=== PATIENT | female | born 1950 | race Caucasian/White ===

== ENCOUNTER → 2016-03-30 | Outpatient (CLI) | payer BC ==
--- NOTE | 2016-04-02 08:48 | MM ---
Reason for exam: screening (asymptomatic). Last mammogram was performed 1 year ago. History: Patient is postmenopausal and is nulliparous. Taking estrogen for 4 years. Taking progesterone for 4 years. Physical Findings: A clinical breast exam by your physician is recommended on an annual basis and results should be correlated with mammographic findings. MG 3D Screening Mammo W/Cad Bilateral CC and MLO view(s) were taken. Prior study comparison: March 24, 2015, bilateral MG 3d screening mammo w/cad. March 01, 2014, bilateral MG screening mammo w CAD. The breast tissue is almost entirely fat. There is no discrete abnormality. No significant changes when compared with prior studies. ASSESSMENT: Negative, BI-RAD 1 RECOMMENDATION: Routine screening mammogram of both breasts in 1 year.
== END | disposition home or self-care (01) ==
LOC: RADMAMWWP 11:24
PROVIDERS: ATTEND Family Medicine
DX: Z12.31 Encounter for screening mammogram for malignant neoplasm of breast (principal)
CPT/HCPCS: 77063; G0202

== ENCOUNTER 2016-08-26 08:28 | Emergency (ER) | payer BC, MEDICARE ==
[2016-08-26] MEDS ORDERED: SODIUM CHLORIDE 0.9% 1,000 ML IV STA (08:52)
--- NOTE | 2016-08-26 09:26 | ED ---
General Adult HPI <Augusto Patel - Last Filed: 08/26/16 11:22> - General Source: patient, RN notes reviewed Mode of arrival: wheelchair Limitations: no limitations <Tyler Dumont - Last Filed: 08/26/16 11:29> - General Chief complaint: Weakness Stated complaint: WEAKNESS X 1 WEEK, SYNCOPE Time Seen by Provider: 08/26/16 08:51 - History of Present Illness Initial comments: Patient is a 65-year-old female who presents emergency room today with a chief complaint of generalized weakness to both the upper and lower extremity's. She does admit that symptoms started approximately a week ago. She states that she was at lunch and she had a syncopal episode. She states it was after she ate waiting for the bill and began feeling nauseated lightheaded put her head down in her lap. She states she did this 3 times on third time she did pass out. She states that she eventually did go to [facility] and did have CAT scan obtained. She states that she is also follow-up the family doctor. She states they did discuss about decreasing her atenolol. States that she has been taking half dose of her atenolol over the last few days. She states she's been feeling some generalized weakness today both the upper and lower extremities over the last few days and at times feeling somewhat nauseous and lightheaded again where she's had put her head into her lap. She states she does have an appointment with glass cutting machine feeder coming up in approximately a week. She denies any other complaints or symptoms at this time. Does admit that her appetite been somewhat down not eating and drinking as well. Does admit that she has a stressful job has been under increased stress due to her sister being sick as well. Patient denies any recent fever, chills, shortness of breath, chest pain, back pain, abdominal pain, nausea or vomiting, numbness or tingling , dysuria or hematuria, constipation or diarrhea, headaches or visual changes, or any other complaints. (Tyler Dumont) - Related Data Home Medications Medication Instructions Recorded Confirmed Atenolol [Tenormin] 25 mg PO DAILY 08/29/14 05/06/15 Dicyclomine [Bentyl] 10 mg PO QID PRN 10/14/14 05/04/15 Cholecalciferol [Vitamin D3] 3,000 unit PO DAILY 05/04/15 05/04/15 L.acidoph,Paracasei, B.lactis 1 each PO DAILY 05/04/15 05/04/15 [Probiotic] Multivit with Calcium,Iron,Min 1 each PO DAILY 05/04/15 05/04/15 [Women's Daily Multivitamin] Omeprazole [PriLOSEC] 40 mg PO AC-BRKFST PRN 05/04/15 05/04/15 Prevastatin 20 mg PO 05/06/15 05/06/15 Allergies Allergy/AdvReac Type Severity Reaction Status Date / Time Sulfa (Sulfonamide Allergy Rash/Hives Verified 08/26/16 08:35 Antibiotics) azithromycin AdvReac Rapid Verified 08/26/16 08:35 [From Zithromax Z-Venkat] Heart Rate levofloxacin [From Levaquin] AdvReac insomnia Verified 08/26/16 08:35 nitrofurantoin AdvReac Nausea & Verified 08/26/16 08:35 [From Macrobid] Vomiting nitrofurantoin AdvReac Nausea & Verified 08/26/16 08:35 macrocrystalline Vomiting [From Macrobid] Review of Systems ROS Other: All systems not noted in ROS Statement are negative. <Augusto Patel - Last Filed: 08/26/16 11:22> ROS Other: All systems not noted in ROS Statement are negative. <Tyler Dumont - Last Filed: 08/26/16 11:29> ROS Statement: Those systems with pertinent positive or pertinent negative responses have been documented in the HPI. Past Medical History Past Medical History: GERD/Reflux, Mitral Valve Prolapse (MVP) Additional Past Medical History / Comment(s): hx IBS, hx. colon polyps History of Any Multi-Drug Resistant Organisms: None Reported Additional Past Surgical History / Comment(s): jaw surg. to correct overbite, laparoscopy Past Anesthesia/Blood Transfusion Reactions: No Reported Reaction Past Psychological History: No Psychological Hx Reported Smoking Status: Former smoker Past Alcohol Use History: Rare Past Drug Use History: None Reported - Past Family History Father Family Medical History: Cancer Mother Family Medical History: Cancer, Deep Vein Thrombosis (DVT) <Tyler Dumont - Last Filed: 08/26/16 11:29> General Exam <Augusto Patel - Last Filed: 08/26/16 11:22> Limitations: no limitations <Tyler Dumont - Last Filed: 08/26/16 11:29> - General Exam Comments Initial Comments: General: The patient is awake and alert, in no distress, and does not appear acutely ill. Eye: Pupils are equal, round and reactive to light, extra-ocular movements are intact. No nystagmus. There is normal conjunctiva bilaterally. No signs of icterus. Ears, nose, mouth and throat: There are moist mucous membranes and no oral lesions. Neck: The neck is supple, there is no tenderness or JVD. Cardiovascular: There is a regular rate and rhythm. No murmur, rub or gallop is appreciated. Respiratory: Lungs are clear to auscultation, respirations are non-labored, breath sounds are equal. No wheezes, stridor, rales, or rhonchi. Gastrointestinal: Soft, non-distended, non-tender abdomen without masses or organomegaly noted. There is no rebound or guarding present. No CVA tenderness. Bowel sounds are unremarkable. Musculoskeletal: Normal ROM, no tenderness. Strength 5/5. Sensation intact. Pulses equal bilaterally 2+. Neurological: A&O x 3. CN II-XII intact, There are no obvious motor or sensory deficits. Coordination appears grossly intact. Speech is normal. Skin: Skin is warm and dry and no rashes or lesions are noted. Psychiatric: Cooperative, appropriate mood & affect, normal judgment. (Tyler Dumont) Course <Augusto Patel - Last Filed: 08/26/16 11:22> <Tyler Dumont - Last Filed: 08/26/16 11:29> Vital Signs 08/26/16 08/26/16 08/26/16 08:30 09:25 09:34 Temperature 98.6 F Pulse Rate 69 62 Respiratory 18 16 Rate Blood Pressure 150/72 137/72 Blood Pressure 169/85 [Right Arm Sitting] Blood Pressure 137/72 [Right Arm Standing] Blood Pressure 139/66 [Right Arm Supine] O2 Sat by Pulse 97 94 L Oximetry 08/26/16 10:00 Temperature Pulse Rate Respiratory 18 Rate Blood Pressure 155/74 Blood Pressure [Right Arm Sitting] Blood Pressure [Right Arm Standing] Blood Pressure [Right Arm Supine] O2 Sat by Pulse 63 L Oximetry - Reevaluation(s) Reevaluation #1: 08/26/16 11:22 I did personally do a [id number] evaluation the patient did discuss findings with her. She is currently asymptomatic she is to follow-up with her doctor and also keep her cardiology appointment. She did recently have her beta lexi prescription altered. I do agree with the assessment and plan. (Augusto Patel) Medical Decision Making - Lab Data Result diagrams: 08/26/16 09:36 08/26/16 09:36 <Augusto Patel - Last Filed: 08/26/16 11:22> - Lab Data Result diagrams: 08/26/16 09:36 08/26/16 09:36 <Tyler Dumont - Last Filed: 08/26/16 11:29> - Medical Decision Making Patient feeling well here in the emergency room with no complaints at this time. Was given a liter bolus. Patient's labs been reviewed unremarkable. Chest x-ray show no signs of pneumonia. Recent records were reviewed from the [facility] with a CT of the head which was negative chest x-ray revealed a left lower pneumonia. Again patient's repeat x-ray today is negative. Patient's labs are unremarkable. She does have an appointment with cardiology. She is advised to increase her oral fluids. Advised to follow-up family doctor. Advised return if symptoms increase or worsen. Patient states understanding and is in agreement. (Tyler Dumont) - Lab Data Lab Results 08/26/16 08/26/16 08/26/16 Range/Units 09:36 09:36 09:36 WBC 7.7 (3.8-10.6) k/uL RBC 4.27 (3.80-5.40) m/uL Hgb 13.8 (11.4-16.0) gm/dL Hct 39.6 (34.0-46.0) % MCV 92.9 (80.0-100.0) fL MCH 32.4 (25.0-35.0) pg MCHC 34.9 (31.0-37.0) g/dL RDW 12.7 (11.5-15.5) % Plt Count 226 (150-450) k/uL Neutrophils % 76 % Lymphocytes % 14 % Monocytes % 6 % Eosinophils % 2 % Basophils % 1 % Neutrophils # 5.9 (1.3-7.7) k/uL Lymphocytes # 1.1 (1.0-4.8) k/uL Monocytes # 0.5 (0-1.0) k/uL Eosinophils # 0.2 (0-0.7) k/uL Basophils # 0.1 (0-0.2) k/uL PT 11.0 (9.0-12.0) sec INR 1.1 (<1.1) APTT 24.3 (22.0-30.0) sec Sodium 141 (137-145) mmol/L Potassium 3.9 (3.5-5.1) mmol/L Chloride 107 (98-107) mmol/L Carbon Dioxide 26 (22-30) mmol/L Anion Gap 8 mmol/L BUN 14 (7-17) mg/dL Creatinine 0.68 (0.52-1.04) mg/dL Est GFR (MDRD) Af Amer >60 (>60 ml/min/1.73 sqM) Est GFR (MDRD) Non-Af >60 (>60 ml/min/1.73 sqM) Glucose 102 H (74-99) mg/dL Calcium 8.9 (8.4-10.2) mg/dL Total Bilirubin 0.6 (0.2-1.3) mg/dL AST 18 (14-36) U/L ALT 24 (9-52) U/L Alkaline Phosphatase 73 (38-126) U/L Total Creatine Kinase (30-135) U/L CK-MB (CK-2) (0.0-2.4) ng/mL CK-MB (CK-2) Rel Index Troponin I (0.000-0.034) ng/mL Total Protein 7.0 (6.3-8.2) g/dL Albumin 3.8 (3.5-5.0) g/dL Urine Color Urine Appearance (Clear) Urine pH (5.0-8.0) Ur Specific [place] (1.001-1.035) Urine Protein (Negative) Urine Glucose (UA) (Negative) Urine Ketones (Negative) Urine Blood (Negative) Urine Nitrite (Negative) Urine Bilirubin (Negative) Urine Urobilinogen (<2.0) mg/dL Ur Leukocyte Esterase (Negative) 08/26/16 08/26/16 Range/Units 09:36 10:10 WBC (3.8-10.6) k/uL RBC (3.80-5.40) m/uL Hgb (11.4-16.0) gm/dL Hct (34.0-46.0) % MCV (80.0-100.0) fL MCH (25.0-35.0) pg MCHC (31.0-37.0) g/dL RDW (11.5-15.5) % Plt Count (150-450) k/uL Neutrophils % % Lymphocytes % % Monocytes % % Eosinophils % % Basophils % % Neutrophils # (1.3-7.7) k/uL Lymphocytes # (1.0-4.8) k/uL Monocytes # (0-1.0) k/uL Eosinophils # (0-0.7) k/uL Basophils # (0-0.2) k/uL PT (9.0-12.0) sec INR (<1.1) APTT (22.0-30.0) sec Sodium (137-145) mmol/L Potassium (3.5-5.1) mmol/L Chloride (98-107) mmol/L Carbon Dioxide (22-30) mmol/L Anion Gap mmol/L BUN (7-17) mg/dL Creatinine (0.52-1.04) mg/dL Est GFR (MDRD) Af Amer (>60 ml/min/1.73 sqM) Est GFR (MDRD) Non-Af (>60 ml/min/1.73 sqM) Glucose (74-99) mg/dL Calcium (8.4-10.2) mg/dL Total Bilirubin (0.2-1.3) mg/dL AST (14-36) U/L ALT (9-52) U/L Alkaline Phosphatase (38-126) U/L Total Creatine Kinase 61 (30-135) U/L CK-MB (CK-2) 1.0 (0.0-2.4) ng/mL CK-MB (CK-2) Rel Index 1.6 Troponin I <0.012 (0.000-0.034) ng/mL Total Protein (6.3-8.2) g/dL Albumin (3.5-5.0) g/dL Urine Color Colorless Urine Appearance Clear (Clear) Urine pH 6.0 (5.0-8.0) Ur Specific [place] 1.002 (1.001-1.035) Urine Protein Negative (Negative) Urine Glucose (UA) Negative (Negative) Urine Ketones Negative (Negative) Urine Blood Negative (Negative) Urine Nitrite Negative (Negative) Urine Bilirubin Negative (Negative) Urine Urobilinogen <2.0 (<2.0) mg/dL Ur Leukocyte Esterase Negative (Negative) Disposition <Augusto Patel - Last Filed: 08/26/16 11:22> Time of Disposition: 11:18 <Tyler Dumont - Last Filed: 08/26/16 11:29> Clinical Impression: Weakness generalized, History of hypertension Disposition: HOME SELF-CARE Condition: Good Instructions: Hypertension (ED) Additional Instructions: Please use medication as discussed. Please follow-up with family doctor in the next 2 days of symptoms have not improved. Please return to emergency room if the symptoms increase or worsen or for any other concerns. Referrals: Jeremias Engle DO [Primary Care Provider] - 1-2 days
[2016-08-26 09:48] LABS: Basophils # (A) 0.1 k/uL (0-0.2); Basophils % (A) 1 %; CH 31.1; CHCM 33.6; Eosinophils # (A) 0.2 k/uL (0-0.7); Eosinophils % (A) 2 %; HCT 39.6 % (34.0-46.0); HDW 2.44; HGB 13.8 gm/dL (11.4-16.0); Luc # (Auto) 0.11; Luc % (Auto) 2; Lymphocytes # (A) 1.1 k/uL (1.0-4.8); Lymphocytes % (A) 14 %; MCH 32.4 pg (25.0-35.0); MCHC 34.9 g/dL (31.0-37.0); MCV 92.9 fL (80.0-100.0); Monocytes # (A) 0.5 k/uL (0-1.0); Monocytes % (A) 6 %; Neutrophils # (A) 5.9 k/uL (1.3-7.7); Neutrophils % (A) 76 %; RBC 4.27 m/uL (3.80-5.40); RDW 12.7 % (11.5-15.5); WBC 7.7 k/uL (3.8-10.6); WBC (Perox) 7.75
[2016-08-26 09:56] LABS: INR 1.1 (<1.1); Partial Thromboplastin Time 24.3 sec (22.0-30.0)
[2016-08-26 09:58] LABS: ALT 24 U/L (9-52); AST 18 U/L (14-36); Alkaline Phosphatase 73 U/L (38-126); Anion Gap 8 mmol/L; Blood Urea Nitrogen 14 mg/dL (7-17); Calcium 8.9 mg/dL (8.4-10.2); Carbon Dioxide 26 mmol/L (22-30); Chloride 107 mmol/L (98-107); Glucose 102 mg/dL (74-99); Non-African American GFR(MDRD) >60 (>60 ml/min/1.73 sqM); Potassium 3.9 mmol/L (3.5-5.1); Sodium 141 mmol/L (137-145); Total Bilirubin 0.6 mg/dL (0.2-1.3)
[2016-08-26 10:09] LABS: Creatine Kinase 61 U/L (30-135)
[2016-08-26 10:22] LABS: Troponin I <0.012 ng/mL (0.000-0.034)
[2016-08-26 10:23] LABS: Appearance,Urine Clear (Clear); Bilirubin,Urine Negative (Negative); Glucose,Urine (UA) Negative (Negative); Ketones,Urine Negative (Negative); Leukocyte Esterase,Urine Negative (Negative); Nitrite,Urine Negative (Negative); Protein,Urine Negative (Negative); Specific Gravity,Urine 1.002 (1.001-1.035); UA Billing (MACRO vs. MICRO) CHEM; Urobilinogen,Urine <2.0 mg/dL (<2.0)
[2016-08-26 10:46] VITALS: RESP 18
--- NOTE | 2016-08-26 11:02 | XR ---
EXAMINATION TYPE: XR chest 2V DATE OF EXAM: 08/26/2016 COMPARISON: 08/29/2014 HISTORY: 65-year-old female with cough TECHNIQUE: PA and lateral views FINDINGS: The cardiomediastinal silhouette, aorta, and pulmonary vasculature are within normal limits. Hyperinf lation with strandy atelectasis at the left base. Some similar strandy scarring at the peripheral ri ght upper lobe. No consolidation or pleural effusion. IMPRESSION: COPD with a scattered strandy atelectasis/scarring. No acute process seen.
[2016-08-26 11:43] VITALS: BP 137/69; PULSE 68; TEMP 97.5
== END 2016-08-26 11:43 | disposition home or self-care (01) ==
LOC: EC 08:28
DX: R53.1 Weakness (principal); I10 Essential (primary) hypertension; R55 Syncope and collapse; R11.0 Nausea; R42 Dizziness and giddiness; K21.9 Gastro-esophageal reflux disease without esophagitis; Z87.891 Personal history of nicotine dependence; Z79.899 Other long term (current) drug therapy; Z88.1 Allergy status to other antibiotic agents; Z88.2 Allergy status to sulfonamides; Z88.8 Allergy status to other drugs, medicaments and biological substances
CPT/HCPCS: 36415; 71020; 80053; 81003; 82550; 82553; 84484; 85025; 85610; 85730; 93005; 96360; 99285

== ENCOUNTER → 2017-02-15 | Outpatient (CLI) | payer BC ==
--- NOTE | 2017-02-15 11:58 | US ---
EXAMINATION TYPE: US pelvic complete DATE OF EXAM: 02/15/2017 COMPARISON: NONE CLINICAL HISTORY: R10.2 Pelvic and Perineal Pain. Patient describes pain as being just inferior to um bilicus TECHNIQUE: Transabdominal (TA) Date of LMP: 17 years ago EXAM MEASUREMENTS: Uterus: 6.5 x 3.7 x 5.0 cm Endometrial Stripe: obliterated Right Ovary: not visualized Left Ovary: not visualized 1. Uterus: Retroverted 2. Endometrium: obliterated 3. Right Ovary: Obscured by overlying bowel gas 4. Left Ovary: Obscured by overlying bowel gas 5. Bilateral Adnexa: no gross abnormality 6. Posterior cul-de-sac: no fluid patient did not wish to have transvaginal. Area of pain scanned, no gross abnormality noted Retroverted heterogeneous uterus is seen. Endometrial stripe is not seen with certainty on transabdom inal imaging. No free fluid is seen in pelvis. End of study scanning of the anterior abdominal wall inferior to umbilicus shows no worrisome solid o r cystic mass or abnormal fluid collection. No bowel containing hernia is evident. IMPRESSION: As above, suboptimal study without significant finding seen to account for patient's symp toms.
== END | disposition home or self-care (01) ==
LOC: RADUSWWP 10:55
PROVIDERS: ATTEND Family Medicine
DX: N85.4 Malposition of uterus (principal); R10.2 Pelvic and perineal pain
CPT/HCPCS: 76856

== ENCOUNTER → 2017-05-31 | Outpatient (CLI) | payer BC ==
--- NOTE | 2017-06-04 08:59 | MM ---
Reason for exam: screening (asymptomatic). Last mammogram was performed 1 year and 2 months ago. History: Patient is postmenopausal and is nulliparous. Taking estrogen for 4 years. Taking progesterone for 4 years. Physical Findings: A clinical breast exam by your physician is recommended on an annual basis and results should be correlated with mammographic findings. MG Screening Mammo w CAD Bilateral CC and MLO view(s) were taken. Prior study comparison: March 30, 2016, bilateral MG 3d screening mammo w/cad. March 24, 2015, bilateral MG 3d screening mammo w/cad. There are scattered fibroglandular densities. There is chronic nodularity in the left breast. No significant changes when compared with prior studies. ASSESSMENT: Negative, BI-RAD 1 RECOMMENDATION: Routine screening mammogram of both breasts in 1 year.
== END | disposition home or self-care (01) ==
LOC: RADMAMWWP 10:58
PROVIDERS: ATTEND Family Medicine
DX: Z12.31 Encounter for screening mammogram for malignant neoplasm of breast (principal)
CPT/HCPCS: 77067

== ENCOUNTER → 2017-07-08 | Outpatient (CLI) | payer BC ==
[2017-07-08 10:48] LABS: ALT 54 U/L (9-52); AST 30 U/L (14-36); Cholesterol 176 mg/dL (<200); HDL Cholesterol 60 mg/dL (40-60); LDL Cholesterol,Calculated 89 mg/dL (0-99); Triglycerides 135 mg/dL (<150)
== END | disposition home or self-care (01) ==
LOC: LABWHC1 09:55
PROVIDERS: ATTEND Internal Medicine Interventional Cardiology
DX: E78.2 Mixed hyperlipidemia (principal)
CPT/HCPCS: 36415; 80061; 84450; 84460

== ENCOUNTER → 2018-03-19 | Outpatient (CLI) | payer BC ==
--- NOTE | 2018-03-19 15:41 | XR ---
Right ankle HISTORY: Achilles tendon pain for months, Achilles tendinitis 3 views of the right ankle Bone mineralization, joint spaces and alignment are maintained. No fracture or dislocation. There is an the supply present at the insertion of the Achilles tendon. Plantar calcaneal spur is noted. IMPRESSION: No acute abnormality. Ankle MRI may be of benefit.
== END | disposition home or self-care (01) ==
LOC: RADXRMAIN 12:26
PROVIDERS: ATTEND Family Medicine
DX: M76.61 Achilles tendinitis, right leg (principal)

== ENCOUNTER → 2018-07-30 | Outpatient (CLI) | payer BC ==
--- NOTE | 2018-07-31 10:59 | MM ---
Reason for exam: screening (asymptomatic). Last mammogram was performed 1 year and 2 months ago. History: Patient is postmenopausal and is nulliparous. Taking estrogen for 4 years. Taking progesterone for 4 years. Physical Findings: A clinical breast exam by your physician is recommended on an annual basis and results should be correlated with mammographic findings. MG 3D Screening Mammo W/Cad Bilateral CC and MLO view(s) were taken. Prior study comparison: May 31, 2017, bilateral MG screening mammo w CAD. March 30, 2016, bilateral MG 3d screening mammo w/cad. There are scattered fibroglandular densities. There is chronic nodularity in the left axilla. There is no discrete abnormality. ASSESSMENT: Negative, BI-RAD 1 RECOMMENDATION: Routine screening mammogram of both breasts in 1 year.
== END ==
LOC: RADMAMWWP 11:00
PROVIDERS: ATTEND Obstetrics & Gynecology
DX: Z12.31 Encounter for screening mammogram for malignant neoplasm of breast (principal)
CPT/HCPCS: 77063; 77067

== ENCOUNTER → 2018-10-01 | Outpatient (CLI) | payer BC ==
--- NOTE | 2018-10-01 10:02 | US ---
EXAMINATION TYPE: US abdomen complete DATE OF EXAM: 10/01/2018 COMPARISON: NONE CLINICAL HISTORY: R10.9 ABD Pain. Pain EXAM MEASUREMENTS: Liver Length: 15.1 cm Gallbladder Wall: .2 cm CBD: .3 cm Spleen: 8.9 cm Right Kidney: 9.7 x3.8 x 3.7 cm Left Kidney: 9.6 x 4.0 x 3.2 cm Pancreas: Obscured by bowel gas Liver: limited due to rib shadowing appears wnl Gallbladder: wnl Evidence for sonographic Dennison's sign: No CBD: wnl Spleen: wnl Right Kidney: wnl Left Kidney: wnl Upper IVC: wnl Abd Aorta: wnl The liver is homogenous. The intrahepatic portion of the IVC and proximal abdominal aorta are within normal limits. There is no evidence of cholelithiasis. Common bile duct is unremarkable. The visu alized portions of the pancreas are homogenous. The spleen is unremarkable. Kidneys are symmetric a nd free of hydronephrosis. No renal lesions are seen. IMPRESSION: Limited evaluation of the liver secondary to shadowing by overlying ribs and bowel gas. H owever the visualized portions appear unremarkable. No sonographic evidence of cholelithiasis nor acu te cholecystitis. Overall unremarkable abdominal ultrasound.
== END | disposition home or self-care (01) ==
LOC: RADUSWWP 08:58
PROVIDERS: ATTEND Family Medicine
DX: R10.9 Unspecified abdominal pain (principal)
CPT/HCPCS: 76700

== ENCOUNTER → 2020-03-23 | Outpatient (CLI) | payer MEDICARE ==
[2020-03-23 23:33] LABS: African American GFR (CKD) 75.1 (60.0-200.0); Non-African American GFR(CKD) 64.8 (60.0-200.0)
== END | disposition home or self-care (01) ==
LOC: LABWHC1 11:35
PROVIDERS: ATTEND Nurse Practitioner
DX: R10.9 Unspecified abdominal pain (principal)
CPT/HCPCS: 36415; 82565; 84520

== ENCOUNTER → 2020-03-30 | Outpatient (CLI) | payer MEDICARE ==
--- NOTE | 2020-03-30 10:38 | CT ---
EXAMINATION TYPE: CT abdomen pelvis w con DATE OF EXAM: 03/30/2020 COMPARISON: None HISTORY: Abd pain CT DLP: 513.8 mGycm Automated exposure control for dose reduction was used. TECHNIQUE: Helical acquisition of images from the lung bases through the pelvis have been completed. CONTRAST: Performed with Oral Contrast and with IV Contrast, patient injected with 100 mL of Isovue 300. FINDINGS: Stomach shows a thickened appearance possibly due to lack of distention but is indeterminat e. LUNG BASES: No significant abnormality is appreciated. AORTA: No significant abnormality is appreciated. LIVER/GB: Low-attenuation within the liver may be indicative of hepatic steatosis. Small focus of low -attenuation towards the dome the right lobe axial image 8 measures approximately 6 mm and statistica lly likely to represent cyst, gallbladder is normal. PANCREAS: No significant abnormality is seen. SPLEEN: No significant abnormality is seen. ADRENALS: No significant abnormality is seen. KIDNEYS: No significant abnormality is seen. REPRODUCTIVE ORGANS: No significant abnormality is seen BOWEL: Descending colon shows a thickened wall which could be due to lack of distention, difficult t o exclude mucosal abnormality, colitis, correlate. Small bowel fold also shows is thickened appearanc e, axial image #33, coronal image 16. No evident appendicitis. FREE AIR: No Free Air visible. ASCITES: None visible. PELVIC ADENOPATHY: None visualized. RETROPERITONEAL ADENOPATHY: No Retroperitoneal Adenopathy visible. URINARY BLADDER: No significant abnormality is seen. OSSEOUS STRUCTURES: Degenerative disc changes in the lumbar spine, sclerosis noted especially in the right sacroiliac joint, vacuum phenomenon present at the bilateral sacroiliac joints, suspect geode present in the subchondral location on the right, possible osteoarthritic change. IMPRESSION: CORRELATE FOR POSSIBLE COLITIS, ENTERITIS. ADDITIONAL NONSPECIFIC FINDINGS DESCRIBED ABOVE.
== END | disposition home or self-care (01) ==
LOC: RADCTMAIN 07:22
PROVIDERS: ATTEND Nurse Practitioner
DX: K63.89 Other specified diseases of intestine (principal)
CPT/HCPCS: 74177; Q9967 ×2

== ENCOUNTER 2020-04-20 10:14 | Day surgery (SDC) | payer MEDICARE ==
[2020-04-19 10:11] VITALS: BMI 23.3
[2020-04-20 10:39] VITALS: RESP 16; TEMP 97.2
[2020-04-20] MEDS ORDERED: LIDOCAINE 1% (10MG/ML) FOR IV START INTRADERMA ONE (10:44)
[2020-04-20] MEDS ORDERED: LACTATED RINGERS 1,000 ML IV ONE (10:44)
[2020-04-20] MEDS ORDERED: LIDOCAINE 1% INJ 10MG/ML (20 ML MDV) ONE (11:15)
[2020-04-20] MEDS ORDERED: PROPOFOL 10 MG/ML 20 ML VIAL IV ONE (11:15)
--- NOTE | 2020-04-20 11:34 | P.PCN ---
Date of Procedure: 04/20/20 Procedure(s) Performed: Brief history: Patient is a pleasant 69-year-old pleasant white female scheduled for an elective upper endoscopy as well as colonoscopy as a part of evaluation of Is of GERD and Prior History of Colon Polyps Procedure performed: Esophagogastroduodenoscopy with biopsy Colonoscopy with snare polypectomy Preoperative diagnosis: GERD Prior history of colon polyps Anesthesia: MAC Procedure: After informed consent was obtained from the patient was brought into the endoscopy unit and IV sedation was administered by anesthesia under continuous monitoring. Initially upper endoscopy was done. The Olympus GF 160 video endoscope was inserted inserted into the mouth and esophagus intubated without any difficulty and was gradually advanced into the stomach and duodenum and carefully examined. The bulb and second part of the duodenum appeared normal. The scope was then withdrawn into the stomach adequately insufflated with air and upon careful examination the antrum and body, cardia and fundus appeared normal. The scope was then withdrawn into the esophagus. The GE junction was located at 40 cm to the incisors. It appeared regular with no erythema erosions or ulcerations. Rest of the esophagus appeared normal. Patient tolerated the procedure well. At this time the patient continued to remain sedation. Initial digital rectal examination was normal. Olympus CF 160 video colonoscope was then inserted into the rectum and gradually advanced to the cecum without any difficulty. Careful examination was performed as the scope was gradually being withdrawn. The prep was excellent. The cecum, appeared normal. In the ascending colon there was a 5 mm polyp that was removed by snare polypectomy. In the proximal transverse colon there was a 5 limited polyp removed by snare polypectomy. Rest of the ascending colon, transverse colon, descending colon, sigmoid colon and rectum appeared normal. Retroflexion was performed in the rectum and no lesions were noted. Patient tolerated the procedure well. Impression: 1. Upper endoscopy revealed small hiatal hernia, mild antral gastritis and multiple gastric polyps 2. Colonoscopy revealed 5 mm ascending colon polyp and a 5 mm transverse colon polyp both of which were removed by snare polypectomy Recommendations: Findings of this examination were discussed with the patient as well as[ her family. She was advised to follow with the biopsy results. If the biopsy reveals adenoma she can have a repeat colonoscopy in 5 years.
[2020-04-20 11:56] VITALS: BP 131/84; PULSE 79
== END 2020-04-20 12:38 | disposition home or self-care (01) ==
LOC: ORWHC2ENDO 10:14
PROVIDERS: ATTEND Internal Medicine Gastroenterology
DX: Z12.11 Encounter for screening for malignant neoplasm of colon (principal); D72.820 Lymphocytosis (symptomatic); K29.50 Unspecified chronic gastritis without bleeding; K31.7 Polyp of stomach and duodenum; D12.2 Benign neoplasm of ascending colon; D12.3 Benign neoplasm of transverse colon; K44.9 Diaphragmatic hernia without obstruction or gangrene; K21.9 Gastro-esophageal reflux disease without esophagitis; K58.9 Irritable bowel syndrome, unspecified; Z98.890 Other specified postprocedural states; Z79.899 Other long term (current) drug therapy; Z88.1 Allergy status to other antibiotic agents
CPT/HCPCS: 88305; 45385; 43239; J2001; J2704

== ENCOUNTER → 2020-04-27 | Outpatient (CLI) | payer MEDICARE ==
[2020-04-28 00:30] LABS: Gliadin AB IgA, Deaminated NEGATIVE (NEGATIVE); Gliadin AB IgA, Unit 5.5 U/mL; Gliadin AB IgG, Deaminated NEGATIVE (NEGATIVE)
== END | disposition home or self-care (01) ==
LOC: LABWHC1 11:48
PROVIDERS: ATTEND Nurse Practitioner
DX: K58.9 Irritable bowel syndrome, unspecified (principal)
CPT/HCPCS: 36415; 83516

== ENCOUNTER → 2020-09-23 | Outpatient (CLI) | payer MEDICARE ==
--- NOTE | 2020-09-27 08:58 | MM ---
Reason for exam: screening (asymptomatic). Last mammogram was performed 1 year ago. History: Patient is postmenopausal and is nulliparous. Taking estrogen for 4 years. Taking progesterone for 4 years. Physical Findings: A clinical breast exam by your physician is recommended on an annual basis and results should be correlated with mammographic findings. MG 3D Screening Mammo W/Cad Bilateral CC and MLO view(s) were taken. Prior study comparison: September 15, 2019, bilateral MG 3d screening mammo w/cad. July 30, 2018, bilateral MG 3d screening mammo w/cad. May 31, 2017, bilateral MG screening mammo w CAD. There are scattered fibroglandular densities. No significant changes when compared with prior studies. ASSESSMENT: Negative, BI-RAD 1 RECOMMENDATION: Routine screening mammogram of both breasts in 1 year. Manage on a clinical basis with regard to bilateral breast tenderness.
== END | disposition home or self-care (01) ==
LOC: RADMAMWWP 15:50
PROVIDERS: ATTEND Family Medicine
DX: Z12.31 Encounter for screening mammogram for malignant neoplasm of breast (principal)
CPT/HCPCS: 77063; 77067

== ENCOUNTER → 2020-09-27 | Outpatient (CLI) | payer MEDICARE ==
--- NOTE | 2020-09-27 15:32 | US ---
EXAMINATION TYPE: US kidneys/renal and bladder DATE OF EXAM: 09/27/2020 COMPARISON: US, CT CLINICAL HISTORY: N39.0 Recurrent urinary tract infections. Patient stated recurrent UTI noted postme nopausal. EXAM MEASUREMENTS: Right Kidney: 9.2 x 4.4 x 4.2 cm Left Kidney: 9.2 x 3.9 x 4.2 cm Post Void Residual Volume: 1.8 mL Right Kidney: No hydronephrosis or masses seen Left Kidney: No hydronephrosis or masses seen Bladder: wnl Bilateral Jets seen: yes Normal Post Void Residual: yes There is no evidence for hydronephrosis at this point in time. No nephrolithiasis is seen. No rudi s are identified. The urinary bladder is anechoic. Bilateral ureteral jets are seen. IMPRESSION: No abnormality identified.
== END | disposition home or self-care (01) ==
LOC: RADUSWWP 14:51
PROVIDERS: ATTEND Student in an Organized Health Care Education/Training Program
DX: N39.0 Urinary tract infection, site not specified (principal)
CPT/HCPCS: 76770

== ENCOUNTER → 2021-02-07 | Outpatient (CLI) | payer MEDICARE ==
--- NOTE | 2021-02-07 11:19 | US ---
EXAMINATION TYPE: US venous doppler duplex LE RT DATE OF EXAM: 02/07/2021 9:55 AM COMPARISON: NONE CLINICAL HISTORY: M79.604 Pain in right leg. recent pinched nerves in the back and went through thera py to help fix, now has back of right leg pain that is getting better, no h/o dvt SIDE PERFORMED: Right TECHNIQUE: The lower extremity deep venous system is examined utilizing real time linear array sonog maxime with graded compression, doppler sonography and color-flow sonography. VESSELS IMAGED: Common Femoral Vein Deep Femoral Vein Greater Saphenous Vein * Femoral Vein Popliteal Vein Small Saphenous Vein * Proximal Calf Veins (* superficial vessels) There is normal flow, compressibility, vascular waveforms. Right Leg: Negative for DVT IMPRESSION: No evident deep venous thrombosis within the right lower extremity from the level the ivon salvador
== END | disposition home or self-care (01) ==
LOC: RADUSWWP 09:32
PROVIDERS: ATTEND Family Medicine
DX: M79.604 Pain in right leg (principal)

== ENCOUNTER 2021-03-29 13:39 | Observation (INO) | payer MEDICARE ==
--- NOTE | 2021-03-29 14:49 | XR ---
EXAMINATION TYPE: XR chest 2V DATE OF EXAM: 03/29/2021 COMPARISON: Chest x-ray 08/26/2016 HISTORY: Chest pain, intermittent shortness of breath TECHNIQUE: Frontal and lateral views of the chest are obtained. FINDINGS: There is no focal air space opacity, pleural effusion, or pneumothorax seen. The cardiac silhouette size is within normal limits. The osseous structures are intact, question an ossific den sity superimposed over the subacromial region not seen on prior exam, consider synovial osteochondrom atosis, loose body. Prominent lung volume could be indicative of underlying COPD. Patient is rotated. IMPRESSION: No acute cardiopulmonary process.
[2021-03-29 15:09] LABS: Basophils # (A) 0.1 k/uL (0-0.2); Basophils % (A) 1 %; Eosinophils # (A) 0.2 k/uL (0-0.7); Eosinophils % (A) 2 %; HCT 47.1 % (34.0-46.0); HGB 15.6 gm/dL (11.4-16.0); Lymphocytes # (A) 1.5 k/uL (1.0-4.8); Lymphocytes % (A) 22 %; MCH 31.3 pg (25.0-35.0); MCHC 33.1 g/dL (31.0-37.0); MCV 94.5 fL (80.0-100.0); Mean Platelet Volume 7.9; Monocytes # (A) 0.6 k/uL (0-1.0); Monocytes % (A) 8 %; Neutrophils # (A) 4.6 k/uL (1.3-7.7); Neutrophils % (A) 66 %; Platelet Count 307 k/uL (150-450); RBC 4.98 m/uL (3.80-5.40); WBC 7.1 k/uL (3.8-10.6)
[2021-03-29 15:21] LABS: Partial Thromboplastin Time 23.4 sec (22.0-30.0); Prothrombin Time 10.7 sec (9.0-12.0)
[2021-03-29 15:23] LABS: Albumin 5.1 g/dL (3.5-5.0); Calcium 10.4 mg/dL (8.4-10.2); Magnesium 2.1 mg/dL (1.6-2.3); Potassium 4.1 mmol/L (3.5-5.1); Total Bilirubin 0.6 mg/dL (0.2-1.3); Total Protein 9.3 g/dL (6.3-8.2)
--- NOTE | 2021-03-29 17:49 | ED ---
Chest Pain HPI - General Source: patient, RN notes reviewed Mode of arrival: ambulatory Limitations: no limitations <Pedro Queen - Last Filed: 03/29/21 20:21> <Laverne Yost - Last Filed: 04/08/21 00:31> - General Chief Complaint: Chest Pain Stated Complaint: chest & back pain Time Seen by Provider: 03/29/21 17:35 - History of Present Illness Initial Comments: This is a pleasant 70-year-old female presents to the emergency department complaining of chest wall pain. Patient states it seems to be in the anterior chest wall radiating around to the right mid and upper back area. Patient states she also had some pain in the epigastrium and right upper quadrant. Patient was concerned it may be cardiac. She was also concerned about gallbladder disease. She states the pain seems to be worse after she eats food. She states it happened twice over the past week. The first time being last . She states that yesterday she ate dessert that about hour later had onset of pain. This occurred about 4 PM. Patient states she had pain constantly for about 14 hours. Patient had a mild pain in the right shoulder blade area at this time. (Pedro Queen) - Related Data Home Medications Medication Instructions Recorded Confirmed Dicyclomine [Bentyl] 10 mg PO TID PRN 10/14/14 03/29/21 Omeprazole [PriLOSEC] 40 mg PO DAILY 05/04/15 03/29/21 Pravastatin Sodium [Pravachol] 40 mg PO HS 04/19/20 03/29/21 Carboxymethylcellulose Sodium 1 drop BOTH EYES TID 03/29/21 03/29/21 [Refresh Tears] Cholecalciferol [Vitamin D3 (25 25 mcg PO DAILY 03/29/21 03/29/21 Mcg = 1000 Iu)] Multivit-Min/Iron/Folic/Lutein 1 tab PO PC-SUPPER 03/29/21 03/29/21 [Centrum Silver Women Tablet] [place]-3 Fatty Acids [[place]-3] 1,000 mg PO HS 03/29/21 03/29/21 Potassium Gluconate [Potassium 99 mg PO PC-SUPPER 03/29/21 03/29/21 Gluconate ER] diphenhydrAMINE HCL [Benadryl] 25 mg PO DAILY PRN 03/29/21 03/29/21 Allergies Allergy/AdvReac Type Severity Reaction Status Date / Time citalopram [From Celexa] Allergy Unknown Verified 03/29/21 18:01 Sulfa (Sulfonamide Allergy Rash/Hives Verified 03/29/21 18:01 Antibiotics) azithromycin AdvReac Rapid Verified 03/29/21 18:01 [From Zithromax Z-Venkat] Heart Rate levofloxacin [From Levaquin] AdvReac insomnia Verified 03/29/21 18:01 nitrofurantoin AdvReac Nausea & Verified 03/29/21 18:01 [From Macrobid] Vomiting nitrofurantoin AdvReac Nausea & Verified 03/29/21 18:01 macrocrystalline Vomiting [From Macrobid] Review of Systems ROS Other: All systems not noted in ROS Statement are negative. <Pedro Queen - Last Filed: 03/29/21 20:21> ROS Other: All systems not noted in ROS Statement are negative. <Laverne Yost - Last Filed: 04/08/21 00:31> ROS Statement: Those systems with pertinent positive or pertinent negative responses have been documented in the HPI. EKG Findings - EKG Comments: EKG Findings:: EKG done at 1442 reveals sinus rhythm with possible left atrial enlargement, no acute ST or T-wave changes. No axis. Normal purest morphology. Normal intervals. When compared to the previous study from August 2016 there is no significant change. <Pedro Queen - Last Filed: 03/29/21 20:21> Past Medical History Past Medical History: GERD/Reflux, Hyperlipidemia, Osteoarthritis (OA) Additional Past Medical History / Comment(s): hx IBS, hx. colon polyps, "gallbladder issues occ", has broken blood vessels in rt eye from poke with foreign object(saw Dr Ureña). History of Any Multi-Drug Resistant Organisms: None Reported Additional Past Surgical History / Comment(s): jaw surgery to correct overbite, laparoscopy, colonoscopy, EGD, han cataracts Past Anesthesia/Blood Transfusion Reactions: Family History of Problems w/ Anesthesia Additional Past Anesthesia/Blood Transfusion Reaction / Comment(s): mother took long time to come out Past Psychological History: Anxiety Smoking Status: Former smoker Past Alcohol Use History: Occasional Past Drug Use History: None Reported - Past Family History Father Family Medical History: Cancer Additional Family Medical History / Comment(s): colon Mother Family Medical History: Cancer Additional Family Medical History / Comment(s): skin <Pedro Queen Filed: 03/29/21 20:21> General Exam Limitations: no limitations General appearance: alert, in no apparent distress Head exam: Present: atraumatic, normocephalic, normal inspection Eye exam: Present: normal appearance, PERRL, EOMI. Absent: scleral icterus, c onjunctival injection, periorbital swelling ENT exam: Present: normal exam, normal oropharynx, mucous membranes moist. Absent: mucous membranes dry Neck exam: Present: normal inspection. Absent: tenderness, meningismus, lymphadenopathy Respiratory exam: Present: normal lung sounds bilaterally. Absent: respiratory distress, wheezes, rales, rhonchi, stridor Cardiovascular Exam: Present: regular rate, normal rhythm, normal heart sounds. Absent: systolic murmur, diastolic murmur, rubs, gallop, clicks GI/Abdominal exam: Present: soft, normal bowel sounds. Absent: distended, tenderness, guarding, rebound, rigid Extremities exam: Present: normal inspection, full ROM, normal capillary refill. Absent: tenderness, pedal edema, joint swelling, calf tenderness Back exam: Present: normal inspection Neurological exam: Present: alert, oriented X3, CN II-XII intact Psychiatric exam: Present: normal affect, normal mood Skin exam: Present: warm, dry, intact, normal color. Absent: rash <Pedro Queen Filed: 03/29/21 20:21> Course <Pedro Queen Filed: 03/29/21 20:21> Vital Signs 03/29/21 03/29/21 03/29/21 14:12 18:14 18:43 Temperature 98.8 F Pulse Rate 86 86 Pulse Rate [ 89 Office Coordinator Receptionist ] Respiratory 16 16 Rate Blood Pressure 151/85 149/82 O2 Sat by Pulse 96 96 Oximetry 03/29/21 03/30/21 03/30/21 21:00 03:00 05:20 Temperature 97.8 F 97.8 F Pulse Rate 83 60 Pulse Rate [ Office Coordinator Receptionist ] Respiratory 15 17 17 Rate Blood Pressure 136/102 141/77 O2 Sat by Pulse 98 99 Oximetry 03/30/21 08:31 Temperature Pulse Rate 92 Pulse Rate [ Office Coordinator Receptionist ] Respiratory 18 Rate Blood Pressure 147/79 O2 Sat by Pulse 94 L Oximetry - Reevaluation(s) Reevaluation #1: 03/29/21 20:21 Medical record is reviewed Symptoms are improved here in the emergency department Patient is informed of results and questions answered Patient in no distress (Pedro Queen) Chest Pain MDM - Differential Diagnosis AMI, ACS, PE, Esophageal Spasm, Biliary Colic, Pancreatitis - Wells Criteria Clinical Symptoms of DVT: (0) No No Alternative Diagnosis: (0) No Immobilization of Surgery in Previous 4 Weeks: (0) No Previous DVT/PE: (0) No Hemoptysis: (0) No Malignancy: (0) No - PERC Rule Heart Rate < 100: (0) No g: (0) No No Prior History pf DVT/PE: (0) No Hemoptysis: (0) No No Exogenous Estrogen: (1) Yes No Clinical Signs Suggesting DVT: (0) No <Pedro Queen - Last Filed: 03/29/21 20:21> <Laverne Yost - Last Filed: 04/08/21 00:31> - [facility] Patient's workup appears essentially negative. EKG was nondiagnostic. Troponin was negative. CT of the chest did not show any evidence of pulmonary embolism or acute pathology. CT of the abdomen did show enhancing lesion around the cervix but no other findings consistent with the patient's presentation. Patient will be admitted for chest pain observation. Case discussed with Willie lópez from [facility] hospitalist group. Cardiology consultation (Pedro Queen) I was available for consultation in the emergency department. The history and physical exam were done by the midlevel provider. I was consulted for this patients care. I reviewed the case with the midlevel provider and based on their presentation of the patient, I agree with the assessment, medical decision making and plan of care as documented. Chart was dictated using [employer] dictation software. Attempts were made to correct any dictation errors however some typographical errors may persist. Patient was seen during a national state of emergency due to the Covid-19 pandemic. (Laverne Yost) Disposition Decision to Admit Reason: Admit from EC Decision Time: 20:22 <Pedro Queen - Last Filed: 03/29/21 20:21> <Laverne Yost - Last Filed: 04/08/21 00:31> Clinical Impression: Chest pain, Upper abdominal pain, Lesion of cervix Disposition: ADMITTED IP TO THIS HOSP Condition: Stable
[2021-03-29] MEDS ORDERED: SODIUM CHLORIDE 0.9% 500 ML 500 ML IV ONE (18:05)
--- NOTE | 2021-03-29 19:02 | CT ---
EXAMINATION TYPE: CT abdomen pelvis w con CT DLP: 922.5 mGycm, Automated exposure control for dose reduction was used. DATE OF EXAM: 03/29/2021 6:37 PM COMPARISON: CT abdomen pelvis most recent from 03/30/2020. CLINICAL INDICATION:Female, 70 years old with history of abdominal pain; TECHNIQUE: Standard CT of the abdomen and pelvis following the administration of 100 cc of Isovue 3 00 IV contrast material. Coronal and sagittal reformats were performed. FINDINGS: LIVER: Hypoattenuating right hepatic dome probable cyst. There is a Finney tail morphology to the lef t hepatic lobe. GALLBLADDER AND BILE DUCTS: Unremarkable. PANCREAS: Unremarkable. SPLEEN: Unremarkable. ADRENAL GLANDS: Unremarkable. KIDNEYS AND URETERS: No evidence of hydronephrosis or renal calculus. The ureters are unremarkable. PELVIS BLADDER: Unremarkable REPRODUCTIVE: 7 mm area of peripheral enhancement near the cervix central more lower attenuation.. ABDOMEN & PELVIS STOMACH AND BOWEL: No evidence of bowel obstruction. PERITONEUM: No evidence of pneumoperitoneum or free fluid. VASCULATURE: No evidence of aortic aneurysm. MUSCULOSKELETAL: No acute osseous abnormalities LYMPH NODES: No gross evidence for lymphadenopathy. SOFT TISSUE/ABDOMINAL WALL: Fat filled umbilical hernia measuring 0.5 cm at the neck. IMPRESSION: 1. No evidence of acute abdominal process. 2. Incidental peripheral enhancing lesion near the cervix. Correlate with pelvic exam.
--- NOTE | 2021-03-29 19:02 | CT ---
EXAMINATION TYPE: CT angio chest CT DLP: 922.5 mGycm, Automated exposure control for dose reduction was used. DATE OF EXAM: 03/29/2021 6:37 PM COMPARISON: Chest radiograph from same day. Multiple CTs of the chest with most recent on 05/06/2013 . CLINICAL INDICATION:Female, 70 years old with history of Chest pain, shortness of breath; Chest pain radiating into back, SOB TECHNIQUE/CONTRAST: CTA scan of the thorax is performed with IV Contrast, patient injected with 100 mL of Isovue 370, pul monary embolism protocol. MIP images are created and reviewed. FINDINGS: Pulmonary Artery: There is no evidence for a filling defect within the pulmonary vasculature to sugge st acute pulmonary embolism. The pulmonary artery is of normal size. Lungs/Pleura: No evidence of focal consolidation, pleural effusion or pneumothorax. Airway: Large airways are patent. Heart: Within normal limits for size. Vasculature: No evidence of aortic aneurysm. Mediastinum: No gross evidence of adenopathy. Musculoskeletal: No acute osseous abnormalities Soft Tissues: Unremarkable. Lower neck: No significant findings. Upper Abdomen: No significant findings. IMPRESSION: No evidence of pulmonary embolism.
[2021-03-29] MEDS ORDERED: ASPIRIN 81 MG PO STA (20:21)
[2021-03-29] MEDS ORDERED: ONDANSETRON 4 MG/2 ML VIAL IVP PRN (20:23)
[2021-03-29] MEDS ORDERED: NALOXONE 0.4 MG/ML 1 ML VIAL IV PRN (20:23)
[2021-03-29] MEDS ORDERED: MORPHINE SULFATE 4 MG/ML SYRINGE IV PRN (20:23)
[2021-03-29] MEDS ORDERED: ACETAMINOPHEN TAB 325 MG TAB PO PRN (20:23)
[2021-03-30 02:24] VITALS: TEMP 97.8
[2021-03-30 08:31] VITALS: BP 147/79; PULSE 92; RESP 18
[2021-03-30 09:31] LABS: Basophils # (A) 0.08 X 10*3/uL (0.00-0.10); Basophils % (A) 1.1 %; Eosinophils # (A) 0.18 X 10*3/uL (0.04-0.35); Eosinophils % (A) 2.4 %; HGB 14.8 g/dL (12.0-15.0); Immature Grans, Automated 0.4 %; Lymphocytes # (A) 2.35 X 10*3/uL (0.90-5.00); Lymphocytes % (A) 31.7 %; MCH 31.1 pg (27.0-32.0); MCHC 33.6 g/dL (32.0-37.0); MCV 92.4 fL (80.0-97.0); Mean Platelet Volume 10.6 fL (9.5-12.2); Monocytes # (A) 0.72 X 10*3/uL (0.20-1.00); Monocytes % (A) 9.7 %; NRBC Per 100 WBC 0 /100 WBCS (0.0-0.0); Neutrophils # (A) 4.05 X 10*3/uL (1.80-7.70); Neutrophils % (A) 54.7 %; Platelet Count 300 X 10*3/uL (140-440); RBC 4.76 X 10*6/uL (4.10-5.20); RDW 12.6 % (11.5-14.5); WBC 7.41 X 10*3/uL (4.50-10.00)
[2021-03-30 09:45] LABS: Anion Gap 12.7 mmol/L (10.00-18.00); BUN/Creat Ratio 12.5 Ratio (12.00-20.00); Calcium 9.9 mg/dL (8.7-10.3); Carbon Dioxide 26.3 mmol/L (20.0-27.5); Magnesium 2.1 mg/dL (1.5-2.4); Non-African American GFR(CKD) 74.2 (60.0-200.0); Potassium 3.8 mmol/L (3.5-5.5)
--- NOTE | 2021-03-30 10:20 | P.CRDCN ---
History of Present Illness Consult date: 03/30/21 History of present illness: HISTORY OF PRESENT ILLNESS: This is a 70-year-old female with a past medical history significant for hyperlipidemia and former nicotine dependence. Patient follows in the office with Dr. Goddard. We have been asked to see the patient in consultation for chest pain. Patient examined at the bedside. Patient states she has been having chest discomfort for the past day or so. She reports that pain is like a tightness fe eling in her chest. She also reports the pain goes across both first shoulder blades and down the right side of her back. She states the pain has been worse after she eats. The patient was concerned that it may be her heart or possibly her gallbladder. 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 The patient does report mild epigastric pain with palpation. She denies worsening pain with deep inspiration. EKG reveals sinus mechanism with no signs of acute ischemia Chest xray negative for acute process Chest CTA: Negative for PE Abdomen pelvis CT: No evidence of acute abdominal process. Incidental peripheral enhancing lesion near the cervix. Correlate with pelvic exam. Laboratory data: WBC 7.41. Hemoglobin 14.8. Platelet count 300. Sodium 139. Potassium 3.8. BUN 10. Creatinine 0.8. Troponin negative 3. Current home cardiac medications include Pravachol 40 mg at night Most recent echocardiogram obtained in August 2019 revealed ejection fraction 55%, mild mitral regurgitation, mild tricuspid regurgitation Patient underwent nuclear stress test in August 2019 which was negative for ischemia REVIEW OF SYSTEMS: At the time of my exam: CONSTITUTIONAL: Denies fever or chills. HEENT: Denies blurred vision, vision changes, or eye pain. Denies hemoptysis CARDIOVASCULAR: Denies chest pain. Denies orthopnea. Denies PND. Denies palpitations RESPIRATORY: Denies shortness of breath. GASTROINTESTINAL: Denies abdominal pain. Denies nausea or vomiting. HEMATOLOGIC: Denies bleeding disorders. GENITOURINARY: Denies any blood in urine. SKIN: Denies pruitis. Denies rash. PHYSICAL EXAM: VITAL SIGNS: Reviewed. GENERAL: Well-developed in no acute distress. HEENT: Head is normocephalic. Pupils are equal, round. Sclerae anicteric. Mucous membranes of the mouth are moist. Neck supple. No JVD or thyromegaly LUNGS: Respirations even and unlabored. Lungs essentially clear to auscultation bilaterally. HEART: Regular rate and rhythm. S1 and S2 heard. ABDOMEN: Soft. Nondistended. Nontender. EXTREMITIES: Normal range of motion. No clubbing or cyanosis. Peripheral pulses intact. No lower extremity edema NEUROLOGIC: Awake and alert. Oriented x 3. 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 Signing provider agrees with the documented findings, assessment, and plan of care. Past Medical History Past Medical History: GERD/Reflux, Hyperlipidemia, Osteoarthritis (OA) Additional Past Medical History / Comment(s): hx IBS, hx. colon polyps, "gallbladder issues occ", has broken blood vessels in rt eye from poke with foreign object(saw Dr Ureña). History of Any Multi-Drug Resistant Organisms: None Reported Additional Past Surgical History / Comment(s): jaw surgery to correct overbite, laparoscopy, colonoscopy, EGD, han cataracts Past Anesthesia/Blood Transfusion Reactions: Family History of Problems w/ Anesthesia Additional Past Anesthesia/Blood Transfusion Reaction / Comment(s): mother took long time to come out Past Psychological History: Anxiety Smoking Status: Former smoker Past Alcohol Use History: Occasional Past Drug Use History: None Reported - Past Family History Father Family Medical History: Cancer Additional Family Medical History / Comment(s): colon Mother Family Medical History: Cancer Additional Family Medical History / Comment(s): skin Medications and Allergies Home Medications Medication Instructions Recorded Confirmed Type Dicyclomine [Bentyl] 10 mg PO TID PRN 10/14/14 03/29/21 History Omeprazole [PriLOSEC] 40 mg PO DAILY 05/04/15 03/29/21 History Pravastatin Sodium [Pravachol] 40 mg PO HS 04/19/20 03/29/21 History Carboxymethylcellulose Sodium 1 drop BOTH EYES TID 03/29/21 03/29/21 History [Refresh Tears] Cholecalciferol [Vitamin D3 (25 25 mcg PO DAILY 03/29/21 03/29/21 History Mcg = 1000 Iu)] Multivit-Min/Iron/Folic/Lutein 1 tab PO PC-SUPPER 03/29/21 03/29/21 History [Centrum Silver Women Tablet] [place]-3 Fatty Acids [[place]-3] 1,000 mg PO HS 03/29/21 03/29/21 History Potassium Gluconate [Potassium 99 mg PO PC-SUPPER 03/29/21 03/29/21 History Gluconate ER] diphenhydrAMINE HCL [Benadryl] 25 mg PO DAILY PRN 03/29/21 03/29/21 History Allergies Allergy/AdvReac Type Severity Reaction Status Date / Time citalopram [From Celexa] Allergy Unknown Verified 03/29/21 18:01 Sulfa (Sulfonamide Allergy Rash/Hives Verified 03/29/21 18:01 Antibiotics) azithromycin AdvReac Rapid Verified 03/29/21 18:01 [From Zithromax Z-Venkat] Heart Rate levofloxacin [From Levaquin] AdvReac insomnia Verified 03/29/21 18:01 nitrofurantoin AdvReac Nausea & Verified 03/29/21 18:01 [From Macrobid] Vomiting nitrofurantoin AdvReac Nausea & Verified 03/29/21 18:01 macrocrystalline Vomiting [From Macrobid] Physical Exam Vitals: Vital Signs Temp Pulse Pulse Resp BP Pulse Ox 03/30/21 08:31 92 18 147/79 94 L 03/30/21 05:20 17 03/30/21 03:00 97.8 F 60 17 141/77 99 03/29/21 21:00 97.8 F 83 15 136/102 98 03/29/21 18:43 89 03/29/21 18:14 86 16 149/82 96 03/29/21 14:12 98.8 F 86 16 151/85 96 Results 03/30/21 06:08 03/30/21 06:08 Cardiac Enzymes 03/29/21 03/29/21 03/29/21 Range/Units 14:50 14:50 20:41 AST 21 (14-36) U/L Troponin I <0.012 <0.012 (0.000-0.034) ng/mL 03/29/21 Range/Units 23:38 AST (14-36) U/L Troponin I <0.012 (0.000-0.034) ng/mL Coagulation 03/29/21 Range/Units 14:50 PT 10.7 (9.0-12.0) sec APTT 23.4 (22.0-30.0) sec CBC 03/29/21 03/30/21 Range/Units 14:50 06:08 WBC 7.1 7.41 (3.8-10.6) k/uL RBC 4.98 4.76 (3.80-5.40) m/uL Hgb 15.6 14.8 (11.4-16.0) gm/dL Hct 47.1 H 44.0 (34.0-46.0) % Plt Count 307 300 (150-450) k/uL Comprehensive Metabolic Panel 03/29/21 03/30/21 Range/Units 14:50 06:08 Sodium 141 139 (137-145) mmol/L Potassium 4.1 3.8 (3.5-5.1) mmol/L Chloride 101 100 (98-107) mmol/L Carbon Dioxide 29 26.3 (22-30) mmol/L BUN 11 10.0 (7-17) mg/dL Creatinine 0.87 0.8 (0.52-1.04) mg/dL Glucose 93 94 (74-99) mg/dL Calcium 10.4 H 9.9 (8.4-10.2) mg/dL AST 21 (14-36) U/L ALT 14 (4-34) U/L Alkaline Phosphatase 92 (38-126) U/L Total Protein 9.3 H (6.3-8.2) g/dL Albumin 5.1 H (3.5-5.0) g/dL Current Medications Generic Name Dose Route Start Last Admin Trade Name Freq PRN Reason Stop Dose Admin Acetaminophen 650 mg 03/29/21 20:23 03/29/21 21:00 Acetaminophen Tab 325 Mg Tab PO 650 mg Q6HR PRN Administration Mild Pain or Fever > 100.5 Morphine Sulfate 4 mg 03/29/21 20:23 Morphine Sulfate 4 Mg/Ml Syringe IV Q4HR PRN Severe Pain Naloxone HCl 0.2 mg 03/29/21 20:23 Naloxone 0.4 Mg/Ml 1 Ml Vial IV Q2M PRN Opioid Reversal Ondansetron HCl 4 mg 03/29/21 20:23 Ondansetron 4 Mg/2 Ml Vial IVP Q8HR PRN Nausea And Vomiting Pravastatin Sodium 40 mg 03/30/21 21:00 Pravastatin Sodium 40 Mg Tab PO HS RAMSEY 03/30/21 06:08 03/30/21 06:08
--- NOTE | 2021-03-30 11:00 | ECHOF ---
Referral Reason:lv function MEASUREMENTS -------- HEIGHT: 167.6 cm WEIGHT: 61.7 kg BP: IVSd: 1.1 cm (0.6 - 1.1) LVIDd: 4.1 cm (3.9 - 5.3) LVPWd: 1.4 cm (0.6 - 1.1) IVSs: 1.8 cm LVIDs: 2.2 cm LVPWs: 2.0 cm Ao Diam: 3.2 cm (2.0 - 3.7) AV Cusp: 1.8 cm (1.5 - 2.6) LA Diam: 2.2 cm (2.7 - 3.8) MV EXCURSION: 11.800 mm (> 18.000) MV EF SLOPE: 60 mm/s (70 - 150) EPSS: 0.8 cm MV E Tashi: 0.48 m/s MV DecT: 224 ms MV A Tashi: 0.68 m/s MV E/A Ratio: 0.71 RAP: 5.00 mmHg RVSP: 7.85 mmHg FINDINGS -------- This was a technically good study. The left ventricular size is normal. There is borderline concentric left ventricular hypertrophy. Overall left ventricular systolic function is normal with, an EF between 55 - 60 %. The right ventricle is normal in size. The left atrial size is normal. The right atrial size is normal. The aortic valve is trileaflet and appears structurally normal. The mitral valve is normal. There is trace mitral regurgitation. The tricuspid valve appears structurally normal. Trace tricuspid regurgitation present. Right jennifer tricular systolic pressure is normal at < 35 mmHg. There is no pulmonic regurgitation present. The aortic root size is normal. Normal inferior vena cava with normal inspiratory collapse consistent with estimated right atrial pre ssure of 5 mmHg. There is no pericardial effusion. CONCLUSIONS -------- 1. There is borderline concentric left ventricular hypertrophy. 2. Overall left ventricular systolic function is normal with, an EF between 55 - 60 %. 3. There is trace mitral regurgitation. 4. Trace tricuspid regurgitation present. 5. There is no pericardial effusion. DIESEL TRAILER MECHANIC: [facility]
--- NOTE | 2021-03-30 11:27 | P.DS ---
Providers Date of admission: 03/29/21 20:19 Attending physician: Soraya Ibanez Consults: 03/29/21 20:23 Consult Physician Urgent Consulting Provider: Georges Goddard Consult Reason/Comments: Chest pain Do you want consulting provider notified?: Yes Primary care physician: Jeremias Engle [facility] Course: Please refer to my HPI for further details Patient Condition at Discharge: Stable Plan - Discharge Summary New Discharge Prescriptions: No Action Dicyclomine [Bentyl] 10 mg PO TID PRN PRN Reason: IBS Omeprazole [PriLOSEC] 40 mg PO DAILY Pravastatin Sodium [Pravachol] 40 mg PO HS Potassium Gluconate [Potassium Gluconate ER] 99 mg PO PC-SUPPER Cholecalciferol [Vitamin D3 (25 Mcg = 1000 Iu)] 25 mcg PO DAILY Carboxymethylcellulose Sodium [Refresh Tears] 1 drop BOTH EYES TID [place]-3 Fatty Acids [[place]-3] 1,000 mg PO HS diphenhydrAMINE HCL [Benadryl] 25 mg PO DAILY PRN PRN Reason: Allergy Symptoms Multivit-Min/Iron/Folic/Lutein [Centrum Silver Women Tablet] 1 tab PO PC- SUPPER Discharge Medication List Dicyclomine [Bentyl] 10 mg PO TID PRN 10/14/14 [History] Omeprazole [PriLOSEC] 40 mg PO DAILY 05/04/15 [History] Pravastatin Sodium [Pravachol] 40 mg PO HS 04/19/20 [History] Carboxymethylcellulose Sodium [Refresh Tears] 1 drop BOTH EYES TID 03/29/21 [History] Cholecalciferol [Vitamin D3 (25 Mcg = 1000 Iu)] 25 mcg PO DAILY 03/29/21 [History] Multivit-Min/Iron/Folic/Lutein [Centrum Silver Women Tablet] 1 tab PO PC-SUPPER 03/29/21 [History] [place]-3 Fatty Acids [[place]-3] 1,000 mg PO HS 03/29/21 [History] Potassium Gluconate [Potassium Gluconate ER] 99 mg PO PC-SUPPER 03/29/21 [History] diphenhydrAMINE HCL [Benadryl] 25 mg PO DAILY PRN 03/29/21 [History] Follow up Appointment(s)/Referral(s): Jeremias Engle DO [Primary Care Provider] - 3 Days Discharge Disposition: HOME SELF-CARE
--- NOTE | 2021-03-30 11:27 | P.HPIM ---
History of Present Illness 70-year-old female is being admitted for chest pain her chest pain is predominantly in the right upper quadrant as well as radiating to the back and some pain in the chest area associated with food for makes it worse. Patient denied any nausea vomiting. Patient had these symptoms going on for 2-3 days of intermittent dull aching moderate severity was unable to sleep for the last 2 nights. Patient has a negative troponin's EKG did not show any acute ST-T wave changes CT angios the chest negative for pulmonary embolism a CT abdomen pelvis did not show any significant abnormality. She had a HIDA scan in 2016 showing hypokinetic gallbladder REVIEW OF SYSTEMS: CONSTITUTIONAL: No fever, no malaise, no fatigue. HEENT: No recent visual problems or hearing problems. Denied any sore throat. CARDIOVASCULAR: No orthopnea, PND, no palpitations, no syncope. PULMONARY: No shortness of breath, no cough, no hemoptysis. GASTROINTESTINAL: No diarrhea, no nausea, no vomiting. NEUROLOGICAL: No headaches, no weakness, no numbness. HEMATOLOGICAL: Denies any bleeding or petechiae. GENITOURINARY: Denies any burning micturition, frequency, or urgency. MUSCULOSKELETAL/RHEUMATOLOGICAL: Denies any joint pain, swelling, or any muscle pain. ENDOCRINE: Denies any polyuria or polydipsia. The rest of the 14-point review of systems is negative. PHYSICAL EXAMINATION: GENERAL: The patient is alert and oriented x3, not in any acute distress. Well developed, well nourished. HEENT: Pupils are round and equally reacting to light. EOMI. No scleral icterus. No conjunctival pallor. Normocephalic, atraumatic. No pharyngeal erythema. No thyromegaly. CARDIOVASCULAR: S1 and S2 present. No murmurs, rubs, or gallops. PULMONARY: Chest is clear to auscultation, no wheezing or crackles. ABDOMEN: Soft, nontender, nondistended, normoactive bowel sounds. No palpable organomegaly. MUSCULOSKELETAL: No joint swelling or deformity. EXTREMITIES: No cyanosis, clubbing, or pedal edema. NEUROLOGICAL: Gross neurological examination did not reveal any focal deficits. SKIN: No rashes. Assessment and plan Chest pain: Most appears to be secondary to gallstones will obtain ultrasound of the abdomen which showed gastritis patient will be referred to general surgery. Patient was evaluated for a chest pain to rule out a concurrent syndromes acute Syndromes Would Ruled Out Echo Was Opted Which Did Not Show Any Wall Motion Abnormalities If Cleared by Cardiology Patient Will Be Discharged Today -Hyperlipidemia Gastroesophageal reflux disease DVT prophylaxis: Past Medical History Past Medical History: GERD/Reflux, Hyperlipidemia, Osteoarthritis (OA) Additional Past Medical History / Comment(s): hx IBS, hx. colon polyps, "gallbladder issues occ", has broken blood vessels in rt eye from poke with foreign object(saw Dr Ureña). History of Any Multi-Drug Resistant Organisms: None Reported Additional Past Surgical History / Comment(s): jaw surgery to correct overbite, laparoscopy, colonoscopy, EGD, han cataracts Past Anesthesia/Blood Transfusion Reactions: Family History of Problems w/ Anesthesia Additional Past Anesthesia/Blood Transfusion Reaction / Comment(s): mother took long time to come out Past Psychological History: Anxiety Smoking Status: Former smoker Past Alcohol Use History: Occasional Past Drug Use History: None Reported - Past Family History Father Family Medical History: Cancer Additional Family Medical History / Comment(s): colon Mother Family Medical History: Cancer Additional Family Medical History / Comment(s): skin Medications and Allergies Home Medications Medication Instructions Recorded Confirmed Type Dicyclomine [Bentyl] 10 mg PO TID PRN 10/14/14 03/29/21 History Omeprazole [PriLOSEC] 40 mg PO DAILY 05/04/15 03/29/21 History Pravastatin Sodium [Pravachol] 40 mg PO HS 04/19/20 03/29/21 History Carboxymethylcellulose Sodium 1 drop BOTH EYES TID 03/29/21 03/29/21 History [Refresh Tears] Cholecalciferol [Vitamin D3 (25 25 mcg PO DAILY 03/29/21 03/29/21 History Mcg = 1000 Iu)] Multivit-Min/Iron/Folic/Lutein 1 tab PO PC-SUPPER 03/29/21 03/29/21 History [Centrum Silver Women Tablet] [place]-3 Fatty Acids [[place]-3] 1,000 mg PO HS 03/29/21 03/29/21 History Potassium Gluconate [Potassium 99 mg PO PC-SUPPER 03/29/21 03/29/21 History Gluconate ER] diphenhydrAMINE HCL [Benadryl] 25 mg PO DAILY PRN 03/29/21 03/29/21 History Allergies Allergy/AdvReac Type Severity Reaction Status Date / Time citalopram [From Celexa] Allergy Unknown Verified 03/29/21 18:01 Sulfa (Sulfonamide Allergy Rash/Hives Verified 03/29/21 18:01 Antibiotics) azithromycin AdvReac Rapid Verified 03/29/21 18:01 [From Zithromax Z-Venkat] Heart Rate levofloxacin [From Levaquin] AdvReac insomnia Verified 03/29/21 18:01 nitrofurantoin AdvReac Nausea & Verified 03/29/21 18:01 [From Macrobid] Vomiting nitrofurantoin AdvReac Nausea & Verified 03/29/21 18:01 macrocrystalline Vomiting [From Macrobid] Physical Exam Vitals: Vital Signs Temp Pulse Pulse Resp BP Pulse Ox 03/30/21 08:31 92 18 147/79 94 L 03/30/21 05:20 17 03/30/21 03:00 97.8 F 60 17 141/77 99 03/29/21 21:00 97.8 F 83 15 136/102 98 03/29/21 18:43 89 03/29/21 18:14 86 16 149/82 96 03/29/21 14:12 98.8 F 86 16 151/85 96 Results CBC & Chem 7: 03/30/21 06:08 03/30/21 06:08 Labs: Abnormal Lab Results - Last 24 Hours (Table) 03/29/21 03/29/21 Range/Units 14:50 14:50 Hct 47.1 H (34.0-46.0) % Calcium 10.4 H (8.4-10.2) mg/dL Total Protein 9.3 H (6.3-8.2) g/dL Albumin 5.1 H (3.5-5.0) g/dL
[2021-03-30] MEDS ORDERED: PANTOPRAZOLE 40 MG/10 ML VIAL IVP SCH (11:30)
--- NOTE | 2021-03-30 13:10 | US ---
EXAMINATION TYPE: US gallbladder DATE OF EXAM: 03/30/2021 COMPARISON: NONE CLINICAL HISTORY: Gallstones. EXAM MEASUREMENTS: Liver Length: 11.6 cm Gallbladder Wall: 0.3 cm CBD: 0.3 cm Right Kidney: 9.4 x 3.7 x 4.6 cm Patient ate breakfast and was half finished with her lunch when tech went in to scan, ordering directed tech to do test anyway. Pancreas: Obscured by bowel gas Liver: partially visualized due to extensive overlying gas Gallbladder: wnl, as seen somewhat limited views Evidence for sonographic Dennison's sign: no CBD: wnl as seen, limited view Right Kidney: inferior pole obscured, appears wnl as seen There is no ascites. IMPRESSION: Exam somewhat limited technically. Borderline gallbladder wall thickness is noted.
[2021-03-30] MEDS ORDERED: PRAVASTATIN SODIUM 40 MG TAB PO SCH (21:00)
== END 2021-03-30 15:31 | disposition home or self-care (01) ==
LOC: EC 13:39 → 6NMEDSUR 20:19
PROVIDERS: ADMIT Hospitalist; ATTEND Hospitalist
DX: R07.89 Other chest pain (principal); K82.8 Other specified diseases of gallbladder; K21.9 Gastro-esophageal reflux disease without esophagitis; E78.5 Hyperlipidemia, unspecified; K58.9 Irritable bowel syndrome, unspecified; N88.9 Noninflammatory disorder of cervix uteri, unspecified; F41.9 Anxiety disorder, unspecified; Z20.822 Contact with and (suspected) exposure to COVID-19; Z79.899 Other long term (current) drug therapy; Z88.1 Allergy status to other antibiotic agents; Z88.2 Allergy status to sulfonamides; Z88.8 Allergy status to other drugs, medicaments and biological substances; Z86.010 Personal history of colon polyps; Z87.828 Personal history of other (healed) physical injury and trauma; Z98.42 Cataract extraction status, left eye; Z98.41 Cataract extraction status, right eye; Z87.891 Personal history of nicotine dependence; Z98.890 Other specified postprocedural states; Z80.0 Family history of malignant neoplasm of digestive organs; Z80.8 Family history of malignant neoplasm of other organs or systems; Z84.89 Family history of other specified conditions
CPT/HCPCS: 99285; 36415; 93005; 93306; 80053; 80048; 83690; 83735 ×2; 84484; 85025 ×2; 85610; 85730; 87635; 71046; 76705; 71275; 74177; G0378 ×2; Q9967

== ENCOUNTER → 2021-04-27 | Outpatient (CLI) | payer MEDICARE ==
[2021-04-27 16:40] LABS: ALT 13 U/L (8-44); AST 25 U/L (13-35); Chol/HDL Ratio 3.12 Ratio; LDL Cholesterol,Calculated 111.3 mg/dL (0.0-131.0)
== END | disposition home or self-care (01) ==
LOC: LABWHC1 07:48
PROVIDERS: ATTEND Internal Medicine Interventional Cardiology
DX: E78.2 Mixed hyperlipidemia (principal)
CPT/HCPCS: 36415; 80061; 84450; 84460

== ENCOUNTER → 2021-10-02 | Outpatient (CLI) | payer MEDICARE ==
--- NOTE | 2021-10-03 10:48 | MM ---
Reason for Exam: Screening (asymptomatic). Last screening mammogram was performed 12 month(s) ago. Patient History: Menarche at age 12. Patient has no children. Postmenopausal. Currently using Estrogen, for 4 years. Currently using Progesterone, for 4 years. Risk Values: Bita 5 year model risk: 1.9%. NCI Lifetime model risk: 5.4%. Prior Study Comparison: 07/30/2018 Bilateral Screening Mammogram, [facility]. 09/15/2019 Bilateral Screening Mammogram, [facility]. 09/23/2020 Bilateral Screening Mammogram, [facility]. Tissue Density: The breast tissue is heterogeneously dense. This may lower the sensitivity of mammography. Findings: Analyzed By CAD. There is no suspicious group of microcalcifications or new suspicious mass in either breast. Overall Assessment: Benign, BI-RAD 2 Management: Screening Mammogram of both breasts in 1 year. A clinical breast exam by your physician is recommended on an annual basis and results should be correlated with mammographic findings. Electronically signed and approved by: Charlie Carey M.D. Radiologis
== END | disposition home or self-care (01) ==
LOC: RADMAMWWP 11:35
PROVIDERS: ATTEND Family Medicine
DX: Z12.31 Encounter for screening mammogram for malignant neoplasm of breast (principal); Z78.0 Asymptomatic menopausal state
CPT/HCPCS: 77063; 77067

== ENCOUNTER → 2021-11-02 | Outpatient (CLI) | payer MEDICARE | END | disposition home or self-care (01) | LOC: LABWHC1 12:19 | PROVIDERS: ATTEND Nurse Practitioner Family | DX: K90.0 Celiac disease (principal) | CPT/HCPCS: 36415; 83516 ==

== ENCOUNTER → 2022-01-24 | Outpatient (CLI) | payer MEDICARE ==
[2022-01-24 18:45] LABS: HCT 44.9 % (37.2-46.3); HGB 14.3 g/dL (12.0-15.0); MCH 29.9 pg (27.0-32.0); MCHC 31.8 g/dL (32.0-37.0); MCV 93.7 fL (80.0-97.0); Mean Platelet Volume 10.6 fL (9.5-12.2); NRBC Per 100 WBC 0 /100 WBCS (0.0-0.0); Platelet Count 290 X 10*3/uL (140-440); RBC 4.79 X 10*6/uL (4.10-5.20); RDW 13.2 % (11.5-14.5); WBC 5.85 X 10*3/uL (4.50-10.00)
[2022-01-24 22:29] LABS: African American GFR (CKD) 78.1 (60.0-200.0); Albumin 4.1 g/dL (3.8-4.9); Albumin/Globulin Ratio 1.37 (1.60-3.17); BUN/Creat Ratio 16.49 Ratio (12.00-20.00); Blood Urea Nitrogen 14.2 mg/dL (9.0-27.0); Calcium 9.4 mg/dL (8.7-10.3); Carbon Dioxide 23.3 mmol/L (20.0-27.5); Non-African American GFR(CKD) 67.4 (60.0-200.0); Potassium 4.4 mmol/L (3.5-5.5); Total Bilirubin 0.2 mg/dL (0.30-1.20); Total Protein 7.1 g/dL (6.2-8.2)
== END | disposition home or self-care (01) ==
LOC: LABWHC1 12:34
PROVIDERS: ATTEND Surgery Plastic and Reconstructive Surgery
DX: A41.9 Sepsis, unspecified organism (principal); L89.309 Pressure ulcer of unspecified buttock, unspecified stage; G47.00 Insomnia, unspecified; Z80.52 Family history of malignant neoplasm of bladder
CPT/HCPCS: 36415; 80053; 85027; 86850; 86900; 86901

== ENCOUNTER 2022-01-26 07:32 | Day surgery (SDC) | payer MEDICARE ==
[2022-01-24 09:41] VITALS: BMI 21.7
--- NOTE | 2022-01-26 06:18 | P.GSHP ---
History of Present Illness H&P Date: 01/26/22 CHIEF COMPLAINT: Ventral hernia. HISTORY OF PRESENT ILLNESS: The patient is a 71-year-old female who presents with swelling along the abdomen for over 6 months with pain and tenderness. Findings were consistent with ventral hernia. She reports change in bowel habits as a result. Now she presents for further evaluation and management. PAST MEDICAL HISTORY: Please see list and reviewed. PAST SURGICAL HISTORY: Please see list and reviewed. MEDICATIONS: Please see list and reviewed. ALLERGIES: Please see list and reviewed. SOCIAL HISTORY: Please see list and reviewed. FAMILY HISTORY: No reports of Crohn disease or ulcerative colitis. REVIEW OF ORGAN SYSTEMS: CONSTITUTIONAL: No reports of fevers or chills. GI: Denies any blood in stools or constipation. Has peritoneal adhesions from prior surgery. HEENT: Denies any trouble with vision, hearing or nosebleeds. No difficulty swallowing. LYMPHATIC: The patient denies any lumps and bumps around the neck. ENDOCRINE: Denies any thyroid disorders. Denies any blood sugar glucose intolerance. RESPIRATORY: Denies pneumonia. Denies any troubles with breathing or dyspnea on exertion. CARDIOVASCULAR: Denies any chest pain, palpitations, or recent heart attacks. Has mitral valve prolapse. GENITOURINARY: Denies any blood in urine or increased urinary frequency. MUSCULOSKELETAL: Denies any back pain, stiffness, joint arthritis. NEUROLOGIC: Denies any numbness or tingling along the distal extremities. No seizure disorders or headaches. PSYCHIATRIC: Has depression. No suidical ideation. HEMATOLOGIC: Denies any abnormal bleeding or bruising. BREASTS: Denies any breast lumps, pain or nipple discharge. PHYSICAL EXAM: VITAL SIGNS: Stable GENERAL: Well-developed pleasant female in no acute distress. HEENT: No scleral icterus. Extraocular movements grossly intact. Moist buccal mucosa. NECK: Supple without lymphadenopathy. CHEST: Unlabored respirations. Equal bilateral excursions. CARDIOVASCULAR: Regular rate and rhythm. Distal 2+ pulses. ABDOMEN: Soft, nondistended. Tender along the umbilicus. MUSCULOSKELETAL: No clubbing, cyanosis, or edema. SKIN: Well perfused. PSYCH: Alert and oriented. No focal or lateralizing signs. ASSESSMENT: 1. Ventral hernia. 2. Peritoneal adhesions 3. Mitral valve prolapse. PLAN: 1. Recommend proceeding with robotic ventral hernia repair with mesh. 2. Benefits and risks of surgical intervention was discussed including possibility of open technique. 3. DVT prophylaxis. 4. Antibiotic prophylaxis. 5. She is elevated risk with mitral valve prolapse. 6. Nutritional assessment for optimal recovery. 7. Non-narcotic pain managment reviewed. 8. She does not smoke. 9. She is not diabetic. Past Medical History Past Medical History: GERD/Reflux, Hyperlipidemia, Osteoarthritis (OA) Additional Past Medical History / Comment(s): Hx IBS. "Gallbladder issues occasionally." Vertigo. Celiac Disease. History of Any Multi-Drug Resistant Organisms: None Reported Additional Past Surgical History / Comment(s): Jaw surgery, laparoscopy, colonoscopy with polypectomy, EGD, bilateral cataract surgery. Past Anesthesia/Blood Transfusion Reactions: No Reported Reaction Additional Past Anesthesia/Blood Transfusion Reaction / Comment(s): Mother took long time to come out of anesthesia. Past Psychological History: Anxiety Smoking Status: Former smoker Past Alcohol Use History: Rare Additional Past Alcohol Use History / Comment(s): Quit smoking in her 20's, only smoked few yrs. Past Drug Use History: None Reported - Past Family History Father Family Medical History: Cancer Additional Family Medical History / Comment(s): Colon cancer. Mother Family Medical History: Cancer Additional Family Medical History / Comment(s): Skin cancer, blood clot in groin area. Medications and Allergies Home Medications Medication Instructions Recorded Confirmed Type Dicyclomine [Bentyl] 10 mg PO TID PRN 10/14/14 01/24/22 History Omeprazole [PriLOSEC] 40 mg PO AC-BRKFST 05/04/15 01/24/22 History Pravastatin Sodium [Pravachol] 40 mg PO 04/19/20 01/24/22 History ALPRAZolam [Xanax] 0.25 mg PO DIRECTED PRN 01/24/22 01/24/22 History Loratadine [Claritin] 10 mg PO DAILY PRN 01/24/22 01/24/22 History Meclizine [Antivert] 12.5 mg PO DIRECTED PRN 01/24/22 01/24/22 History Allergies Allergy/AdvReac Type Severity Reaction Status Date / Time cephalexin [From Keflex] Allergy Rash/Hives Verified 01/24/22 09:43 citalopram [From Celexa] Allergy Unknown Verified 01/24/22 09:22 doxycycline Allergy Rash/Hives Verified 01/24/22 09:43 Sulfa (Sulfonamide Allergy Rash/Hives Verified 01/24/22 09:22 Antibiotics) azithromycin AdvReac Rapid Verified 01/24/22 09:22 [From Zithromax Z-Venkat] Heart Rate ibuprofen AdvReac Tachycardia Verified 01/24/22 09:43 levofloxacin [From Levaquin] AdvReac insomnia Verified 01/24/22 09:22 nitrofurantoin AdvReac Nausea & Verified 01/24/22 09:22 [From Macrobid] Vomiting nitrofurantoin AdvReac Nausea & Verified 01/24/22 09:22 macrocrystalline Vomiting [From Macrobid]
[~2022-01-26 07:32] MED LIST: ACETAMINOPHEN TAB 500 MG TAB PO STA; DEXAMETHASONE SOD PHOSPHATE 4 MG/ML 1 ML VIAL IV ONE; HEPARIN SODIUM,PORCINE/PF 5,000 UNIT/0.5 ML SYRINGE SQ PRN; HYDROmorphone 0.5 MG/0.5 ML SYRINGE IVP PRN; LACTATED RINGERS 1,000 ML IV SCH; LIDOCAINE 1% (10MG/ML) FOR IV START INTRADERMA PRN; ONDANSETRON 4 MG/2 ML VIAL IVP ONE
[2022-01-26 07:56] VITALS: TEMP 97.7
[2022-01-26] MEDS ORDERED: MIDAZOLAM 2 MG/2 ML VIAL IVP ONE (08:45)
[2022-01-26] MEDS ORDERED: DEXAMETHASONE SOD PHOSPHATE 10 MG/ML 1 ML VIAL ONE (09:30)
[2022-01-26] MEDS ORDERED: PHENYLEPHRINE-0.9% NACL SYG 1,000 MCG/10 ML SYRINGE ONE (09:30)
[2022-01-26] MEDS ORDERED: ROPIVACAINE 5 MG/ML 30 ML VIAL ONE (09:30)
[2022-01-26] MEDS ORDERED: LIDOCAINE 2% INJ 20 MG/ML (2 ML VIAL) ONE (09:30)
[2022-01-26] MEDS ORDERED: ROCURONIUM 10 MG/ML (5 ML VIAL) IV ONE (09:30)
[2022-01-26] MEDS ORDERED: NEOSTIGMINE 1 MG/ML 10 ML VIAL ONE (09:30)
[2022-01-26] MEDS ORDERED: SUCCINYLCHOLINE CHLORIDE 200 MG/10 ML VIAL IV ONE (09:30)
[2022-01-26] MEDS ORDERED: PROPOFOL 10 MG/ML 20 ML VIAL IV ONE (09:30)
[2022-01-26] MEDS ORDERED: GLYCOPYRROLATE 0.2 MG/ML 2 ML VIAL ONE (09:30)
[2022-01-26] MEDS ORDERED: diphenhydrAMINE 50 MG/ML 1 ML VIAL ONE (09:30)
[2022-01-26] MEDS ORDERED: BUPIVACAIN-EPI 0.25%-1:200,000 30 ML VIAL SQ ONE (10:01)
[2022-01-26] MEDS ORDERED: LACTATED RINGERS 1,000 ML IV ONE (10:33)
[2022-01-26 11:20] VITALS: RESP 16
[2022-01-26 12:23] VITALS: BP 153/73; PULSE 70
--- NOTE | 2022-01-28 19:07 | P.ANPRN ---
Procedure Note - Anesthesia - Nerve Block Performed Bilateral Transversus Abdominis Single Time Out Performed: Yes Date of Procedure: 01/26/22 Procedure Start Time: 08:45 Procedure Stop Time: 08:50 Location of Patient: PreOp Indication: Acute Post-Operative Pain, Requested by Surgeon Sedation Type: Sedate with meaningful contact maintained Preparation: Sterile Prep Position: Supine Needle Types: Pajunk Needle Gauge: 21 Ultrasound used to visualize needle placement: Yes Ultrasound used to observe medication spread: Yes Blood Aspirated: No Pain Paresthesia on Injection Noted: No Resistance on Injection: Normal Image Stored and Saved: Yes Events: Uneventful and Well Tolerated (ropi .5% 20cc plus dexamethasone 4mg given bilaterally)
--- NOTE | 2022-01-30 15:33 | P.OP ---
Date of Procedure: 01/26/22 Description of Procedure: SURGEON: MAGGIE ARREOLA MD PREOPERATIVE DIAGNOSES: 1. Initial incarcerated umbilical hernia POSTOPERATIVE DIAGNOSES: 1. Initial epigastric ventral hernia with incarceration OPERATION: 1. Robotic-assisted da Kristal Xi laparoscopic repair of initial incarcerated umbilical hernia without mesh Anesthesia: GETA, regional, local Estimated Blood Loss (ml): 5 Pathology: 1. Incarcerated umbilical hernia defect COMPLICATIONS: None. Operative Findings: 1. Umbilical hernia defect 1 cm 2. Fascia repaired using #1 V-lock suture INDICATIONS: The patient is a 71-year-old female who presents with abdominal wall hernia. Surgical intervention with laparoscopic versus robotic and open techniques were reviewed. Placement of mesh was also reviewed. Benefits and risks were thoroughly described. Informed consent was obtained. DESCRIPTION OF PROCEDURE: The patient was brought into the operating room and laid in supine position. After general induction, the abdomen had been prepped and draped in standard sterile fashion. Ioban draping was also placed. Prior to incision, a timeout protocol was confirmed with surgical team regarding the patient's name including procedures to be performed. The robot was primed prior to the procedure. A field block using local anesthetic was placed along hernia site including the proposed port sites. Initial incision was made with an #11 blade along the left upper quadrant. A 0 degree 5 mm laparoscopic trocar entry was performed and insufflated. Three 8 mm ports were placed along the left lateral abdominal wall under direct localization after exchanging the 5-mm for an 8 mm port. Placements of the po rts were 15 cm from the target anatomy and 10 cm apart. An accessory 12 mm port was placed at the right upper quadrant for exchange of mesh including sutures. The [employer] robot was previously primed, prepped and draped then docked from the right side of the patient onto the left side of the patient. I then sat at the robot [employer] Kristal Xi console where working arms of the robot including Bovie cautery connected to robotic scissors, needle tractor driver, and graspers placed by the mailing machine assistant. Incarcerated omental contents were found along umbilicus. The incarcerated contents were reduced as the peritoneal fat was cleaned from the abdominal wall. Next, hemostasis was checked with cautery. The hernia defects were oversewn using #1 nonabsorbable V-lock suture for each defect separately with fascial imbrication x 2. A final endoscopic imaging was obtained. All instruments and pneumoperitoneum were evacuated from the abdominal cavity. The da Kristal Xi robot was undocked from the patient. I re-scrubbed into the case for closure of incisions. The fascia of the 12-mm port was probed and less than 8-mm in size. The incisions were reapproximated using 4-0 Monocryl in an interrupted subcuticular fashion. Liquid glue was applied to the skin after cleansing the skin with normal saline and dilute hydrogen peroxide. An abdominal binder was placed. An umbilical dressing was placed prior. At the end of the procedure, needle, sponge, and instrument count had been verified correct by certified surgical technologist. The patient was taken to the postanesthesia care unit in stable condition. Plan - Discharge Summary Discharge Rx Participant: Yes New Discharge Prescriptions: New Simethicone [Gas-X] 125 mg PO AC-TID PRN #20 capsule PRN Reason: Pain Cyclobenzaprine [Flexeril] 10 mg PO TID #30 tab Acetaminophen Tab [Tylenol Tab] 1,000 mg PO Q6HR PRN #30 tablet PRN Reason: Pain Continue Dicyclomine [Bentyl] 10 mg PO TID PRN PRN Reason: IBS Omeprazole [PriLOSEC] 40 mg PO AC-BRKFST Pravastatin Sodium [Pravachol] 40 mg PO HS Meclizine [Antivert] 12.5 mg PO DIRECTED PRN PRN Reason: Vertigo ALPRAZolam [Xanax] 0.25 mg PO DIRECTED PRN PRN Reason: Anxiety Loratadine [Claritin] 10 mg PO DAILY PRN PRN Reason: Allergic Reaction Discharge Medication List Dicyclomine [Bentyl] 10 mg PO TID PRN 10/14/14 [History] Omeprazole [PriLOSEC] 40 mg PO AC-BRKFST 05/04/15 [History] Pravastatin Sodium [Pravachol] 40 mg PO HS 04/19/20 [History] ALPRAZolam [Xanax] 0.25 mg PO DIRECTED PRN 01/24/22 [History] Loratadine [Claritin] 10 mg PO DAILY PRN 01/24/22 [History] Meclizine [Antivert] 12.5 mg PO DIRECTED PRN 01/24/22 [History] Acetaminophen Tab [Tylenol Tab] 1,000 mg PO Q6HR PRN #30 tablet 01/26/22 [Rx] Cyclobenzaprine [Flexeril] 10 mg PO TID #30 tab 01/26/22 [Rx] Simethicone [Gas-X] 125 mg PO AC-TID PRN #20 capsule 01/26/22 [Rx] Follow up Appointment(s)/Referral(s): Maggie Arreola MD [STAFF PHYSICIAN] - 01/30/22 (Telehealth) Patient Instructions/Handouts: *[facility] - Managing Your Pain After Surgery Without Opioids, *[facility] - (Anesthesia) Discharge Instructions Outpatient Surgery, Umbilical Hernia (ED), Abdominal Binder (DC) Activity/Diet/Wound Care/Special Instructions: No lifting for 4 pounds in 4 weeks, Feb 26 Using antibacterial soap. May shower. No bathtub soaks for 2 weeks, Feb 09 Wear abdominal binder daily for comfort except for showering. Use ice along incisions for today to prevent swelling. Discharge Disposition: HOME SELF-CARE
== END 2022-01-26 13:19 | disposition home or self-care (01) ==
LOC: OR 07:32
PROVIDERS: ATTEND Surgery Plastic and Reconstructive Surgery
DX: K42.0 Umbilical hernia with obstruction, without gangrene (principal); G89.18 Other acute postprocedural pain; E78.5 Hyperlipidemia, unspecified; M19.90 Unspecified osteoarthritis, unspecified site; K21.9 Gastro-esophageal reflux disease without esophagitis; F41.9 Anxiety disorder, unspecified; Z87.891 Personal history of nicotine dependence; Z88.1 Allergy status to other antibiotic agents; Z88.2 Allergy status to sulfonamides; Z88.6 Allergy status to analgesic agent; Z79.899 Other long term (current) drug therapy
CPT/HCPCS: 64488; 88302; 49653; J2250; J0330; J1200; J1100 ×2; J2710; J0690; J2405; J2795; J2370; J2704; J1644; J2001; 86850; 86900; 86901

== ENCOUNTER → 2022-06-12 | Outpatient (CLI) | payer MEDICARE ==
--- NOTE | 2022-06-13 07:58 | US ---
EXAMINATION TYPE: US pelvic complete DATE OF EXAM: 06/12/2022 COMPARISON: US & CT CLINICAL INDICATION: Female, 71 years old with history of R10.2 PELVIC AND PERINEAL PAIN; Pt states L LQ pain TECHNIQUE: Transabdominal (TA). Transabdominal sonographic images of the pelvis were acquired. Pt did not want transvaginal at this time, pt did not want to wait to fill bladder any further Date of LMP: Late 50's EXAM MEASUREMENTS: Uterus: 6.3 x 2.9 x 3.8 cm Endometrial Stripe: 0.2 cm 1. Uterus: Anteverted Limited views appear wnl 2. Endometrium: wnl 3. Right Ovary: Obscured by overlying bowel gas 4. Left Ovary: Obscured by overlying bowel gas 5. Bilateral Adnexa: wnl 6. Posterior cul-de-sac: wnl IMPRESSION: Limited transabdominal exam No evidence for acute process.
== END | disposition home or self-care (01) ==
LOC: RADUSWWP 16:14
PROVIDERS: ATTEND Family Medicine
DX: R10.2 Pelvic and perineal pain (principal)
CPT/HCPCS: 76856

== ENCOUNTER → 2022-07-19 | Outpatient (CLI) | payer MEDICARE ==
[2022-07-19 09:35] LABS: African American GFR (CKD) >90 (>60 ml/min/1.73 sqM); Blood Urea Nitrogen 12 mg/dL (7-17); Non-African American GFR(CKD) 87 (>60 ml/min/1.73 sqM)
--- NOTE | 2022-07-19 11:07 | CT ---
EXAMINATION TYPE: CT abdomen pelvis wo/w con DATE OF EXAM: 07/19/2022 COMPARISON: 03/29/2021 HISTORY: 71-year-old female R10.9, RLQ pain. Pt states hx spastic colon TECHNIQUE: Contiguous axial scanning of the abdomen and pelvis before and after administration of 100 ml Isovue 300 IV contrast. Delayed images through the kidneys and coronal/sagittal reconstructions performed. CT DLP: 753.80 mGycm Automated exposure control for dose reduction was used. FINDINGS: Heart normal size without pericardial effusion. Lung bases clear without pleural effusion. Tiny 5 mm hypodensity, likely a tiny cyst right hepatic dome redemonstrated. No other focal liver les ion. No biliary ductal dilatation. Portal venous system is patent. Gallbladder, adrenal glands, kidneys, spleen, and pancreas within normal limits. No dilated small bowel, free fluid, or free air. No mesenteric or retroperitoneal lymphadenopathy. Mild fold thickening along the gastric fundus and proximal to mid gastric body. Possibly due to incom plete distention. Oral contrast has progressed to the rectum. Scattered mild stool burden. While the appendix is not di scretely visualized, no secondary findings of acute appendicitis in the right lower quadrant. The dis chet two thirds of the transverse colon is collapsed. This may account for the appearance of mild circ umferential wall thickening, axial image 38. No pericolic inflammatory change. Bladder partially distended. Uterus is anteverted but retroflexed. Small bilateral ovaries are seen. No abnormal fluid collection in the pelvis or pelvic lymphadenopathy. Bones: Moderate degenerative disc disease lower lumbar spine. Somewhat sclerotic appearance to the we ightbearing aspect of the femoral heads. This appearance is unchanged from 03/29/2021. Unclear if there continued be some underlying early AVN. IMPRESSION: 1. MILD SUPRAPATELLAR WALL THICKENING ALONG THE DISTAL TWO THIRDS OF THE TRANSVERSE COLON COULD BE DU E TO NONDISTENTION OR NONSPECIFIC MILD COLITIS. CORRELATE. 2. FOCAL THICKENING OF THE FUNDUS AND PROXIMAL TO MID BODY OF THE STOMACH. CORRELATE FOR ANY SYMPTOMS OF POTENTIAL MILD GASTRITIS. 3. SIMILAR SCLEROSIS ALONG THE WEIGHTBEARING ASPECT OF THE BILATERAL FEMORAL HEADS. THIS MAY BE JESSICA L BONE MINERALIZATION FOR THE PATIENT. CORRELATE FOR ANY RISK FACTORS FOR AVN. NO CHANGE COMPARED TO 11/07/2021.
== END | disposition home or self-care (01) ==
LOC: RADCTMAIN 08:18
PROVIDERS: ATTEND Internal Medicine Gastroenterology
DX: K63.89 Other specified diseases of intestine (principal); K58.9 Irritable bowel syndrome, unspecified; R10.31 Right lower quadrant pain
CPT/HCPCS: 82565; 84520; 74178; 36415; Q9967

== ENCOUNTER → 2022-07-23 | Outpatient (CLI) | payer MEDICARE | END | disposition home or self-care (01) | LOC: LABWHC1 11:06 | PROVIDERS: ATTEND Nurse Practitioner Family | DX: K90.0 Celiac disease (principal) ==

== ENCOUNTER → 2022-07-26 | Outpatient (CLI) | payer MEDICARE | END | disposition home or self-care (01) | LOC: LABWHC1 11:35 | PROVIDERS: ATTEND Nurse Practitioner Family | DX: K90.0 Celiac disease (principal) | CPT/HCPCS: 36415; 83516 ==

== ENCOUNTER → 2023-04-19 | Outpatient (CLI) | payer MEDICARE ==
--- NOTE | 2023-04-19 09:44 | USB ---
Reason for Exam: Clinical finding. Indicated Problems: Pain of both sides (Global) for 1 Month(s) : Worst in axilla. Patient History: Menarche at age 12. Patient has no children. Postmenopausal. Currently using Estrogen, for 4 years. Currently using Progesterone, for 4 years. Maternal cousin had breast cancer, age 58. Risk Values: Bita 5 year model risk: 2.0%. NCI Lifetime model risk: 4.8%. Technique: Method: Whole Breast Handheld. Patient Position: Supine. Prior Study Comparison: 09/23/2020 Bilateral Screening Mammogram, [facility]. 10/02/2021 Bilateral MG 3D screening mammo w/cad, [facility]. 11/01/2022 Bilateral MG 3D screening mammo w/cad, [facility]. Findings: The whole breast of both breasts, the axilla of both breasts and the retroareolar of both breasts were scanned. No solid or cystic masses are identified. Small bulges identified at the 9:00 position left breast axillary lymphadenopathy is noted bilaterally. No thickened cortex is evident. Overall Assessment: Negative, BI-RAD 1 Management: Screening Mammogram of both breasts in 6 months. A clinical breast exam by your physician is recommended on an annual basis and results should be correlated with mammographic findings. This exam should not preclude additional follow-up of suspicious palpable abnormalities. Results were given to the patient verbally at the time of exam. Electronically signed and approved by: Rober Winn D.O. Radiologis
== END | disposition home or self-care (01) ==
LOC: RADUSWWP 09:17
PROVIDERS: ATTEND Family Medicine
DX: N64.4 Mastodynia (principal); Z78.0 Asymptomatic menopausal state; Z80.3 Family history of malignant neoplasm of breast

== ENCOUNTER → 2023-11-04 | Outpatient (CLI) | payer MEDICARE ==
--- NOTE | 2023-11-07 10:54 | MM ---
Reason for Exam: Screening (asymptomatic). Last screening mammogram was performed 12 month(s) ago. Patient History: Menarche at age 12. Patient has no children. Postmenopausal. Patient used Estrogen for 4 years. Patient used Progesterone for 4 years. Risk Values: Bita 5 year model risk: 2.0%. NCI Lifetime model risk: 4.5%. Prior Study Comparison: 09/23/2020 Bilateral Screening Mammogram, [facility]. 10/02/2021 Bilateral MG 3D screening mammo w/cad, [facility]. 11/01/2022 Bilateral MG 3D screening mammo w/cad, [facility]. Tissue Density: There are scattered areas of fibroglandular density. Findings: Analyzed By CAD. Right breast: There is no suspicious group of microcalcifications or new suspicious mass. Left breast: There is no suspicious group of microcalcifications or new suspicious mass. Overall Assessment: Negative, BI-RAD 1 Management: Screening Mammogram of both breasts in [address] [facility] will attempt to contact patient to return for supplemental views and ultrasound if indicated. Patient should continue monthly self-breast exams. A clinical breast exam by your physician is recommended on an annual basis. This exam should not preclude additional follow-up of suspicious palpable abnormalities. Note on Bita scores and lifetime risk: 1. A Bita score greater than 3% is considered moderate risk. If this is the case, consider specialist referral to assess eligibility for a risk reducing agent. 2. If overall lifetime risk for the development of breast cancer is 20% or higher, the patient may qualify for future screening with alternating mammogram and breast MRI. [facility], , 11/07/2023 10:48 AM. Electronically signed and approved by: Augusto Watson DO
== END | disposition home or self-care (01) ==
LOC: RADMAMWWP 07:52
PROVIDERS: ATTEND Family Medicine
DX: Z12.31 Encounter for screening mammogram for malignant neoplasm of breast
CPT/HCPCS: 77063; 77067